=== PATIENT | male | born 1965 ===

== ENCOUNTER 2018-04-10 07:05 | Inpatient (IN) | payer OTHER ==
--- NOTE | 2018-04-10 07:14 | EDM.PDOCBH ---
ED HPI GENERAL MEDICAL PROBLEM - General Chief Complaint: Behavioral/Psych Stated Complaint: [facility] Time Seen by Provider: 04/10/18 07:09 Source of Information: Reports: EMS History Limitations: Reports: Altered Mental Status - History of Present Illness INITIAL COMMENTS - FREE TEXT/NARRATIVE: 52-year-old [place] fellow who looks much older than his stated age presents to the ED per ambulance from [place]. Apparently he is visiting here from [place]. is agitated and combative and required Ativan 1 mg IV by paramedics to keep him on the cot. Appears to be more severely confused and disoriented. Some suggestion he may have hep C and ascites and hepatorenal failure in the past. At present the patient is disoriented and somewhat combative and requires one-on-one care. He does not answer any questions. There is evidence of blood on his nose and perinasal tissues compatible with a nosebleed from the left naris. Is no evidence of blood in the oropharynx although there is a almost healing bite wound to the right lateral tongue suggesting possible seizure in the past. The family has arrived to get to provide further history. Onset: Gradual Onset Date: 04/08/18 (Gradual worsening and deterioration in mental function over the last 2-3 days.) Duration: Day(s):, Getting Worse Location: Reports: Generalized Quality: Reports: Other Severity: Severe (Generalized confusion and disorientation unable to speak) Improves with: Reports: None, Other (The abdomen has calmed him down a little bit so that he can stay on the gurney for the most part although he still tries to sit up quite often) Worsens with: Reports: None Context: Reports: Other. Denies: Activity, Exercise, Sick Contact, Trauma Associated Symptoms: Reports: Confusion, Nausea/Vomiting (Rarely he did have some he met emesis reported by paramedics.). Denies: Chest Pain, Cough, cough w sputum Treatments [employer]: Reports: Other (see below) (Paramedics found his blood sugar to be only 63 and gave him three quarters of a amp of D50 percent. Blood sugar upon arrival was 162. He also received Ativan 1 mg IV.) - Related Data Allergies Allergy/AdvReac Type Severity Reaction Status Date / Time No Known Allergies Allergy Verified 04/10/18 08:08 Home Meds: Home Meds Aspirin 81 mg PO DAILY 04/10/18 [History] Furosemide [Lasix] 20 mg PO DAILY 04/10/18 [History] Insulin Glarg,Human.Rec.Analog [Lantus] 45 units SUBCUT DAILY 04/10/18 [History] Lisinopril 10 mg PO DAILY 04/10/18 [History] Pantoprazole Sodium [Protonix] 40 mg PO DAILY 04/10/18 [History] Spironolactone [Aldactone] 100 mg PO DAILY 04/10/18 [History] Social & Family History - Living Situation & Occupation Occupation: Unemployed Social History Comment: Apparently just visiting relatives in [place] from [place]. ED ROS GENERAL - Review of Systems Review Of Systems: Unable To Obtain (Patient is nonverbal and I can't obtain any useful history.) ED EXAM, BEHAVIORAL HEALTH - Physical Exam Exam: See Below Exam Limited By: Altered Mental Status General Appearance: Other (Agitated and restless. Obviously quite confused and disoriented to person place and time) Eye Exam: Bilateral Eye: Normal Inspection (Slight scleral icterus.) Nose: Other (Some dried blood along his face along the nose and the paranasal folds. Appears to have been bleeding from the left naris. There is some history that he also had a he met emesis.) Throat/Mouth: Other (? Of a healing bite wound to the right lateral tongue. It appears to be 3-4 days old possible seizure recently.) Neck: Normal Inspection, Supple, Non-Tender, Full Range of Motion. No: Lymphadenopathy (L), Lymphadenopathy (R) Respiratory/Chest: No Respiratory Distress, Lungs Clear, Normal Breath Sounds, Chest Non-Tender Cardiovascular: Normal Peripheral Pulses, Regular Rate, Rhythm, No Edema, No Gallop, No Murmur GI/Abdominal: Distended (Bowel sounds are quite quiescent. Standard and firm to palpation clinically suspect ascites.), Abnormal Bowel Sounds, Hernia (Has an umbilical hernia that is easily reducible. The area appears be quite tender to touch.), Other (Clinically does have ascites with a fluid wave. 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 No: Normal Cognition, Oriented x 3 Psychiatric: Oriented, Agitated, Other (Confused.) Skin Exam: Warm, Dry, Intact, Normal color, No rash, Other (Does not feel febrile) EKG INTERPRETATION EKG Date: 04/10/18 Time: 07:35 Rhythm: Other (Sinus tachycardia at 1 10/m) Rate (Beats/Min): 110 [place]: Normal P-Wave: Present QRS: Other (He has a Q-wave in V1 and near Q-wave in V2 suggesting possible anteroseptal myocardial infarction.) ST-T: Other (Decreased voltage in the limb leads.) QT: Normal EKG Interpretation Comments: Abnormal ECG COURSE, BEHAVIORAL HEALTH COMP - Course Vital Signs: Last Vital Signs Temp 36.9 C 04/10/18 08:47 Pulse 110 H 04/10/18 08:47 Resp 30 H 04/10/18 08:47 BP 181/55 H 04/10/18 08:47 Pulse Ox 94 L 04/10/18 08:47 Orders, Labs, Meds: Active Orders 24 hr Category Date Time Status EKG Documentation Completion [RC] STAT Care 04/10/18 07:11 Active Insert Stewart Catheter [Insert Urinary Catheter] [OM.PC] Care 04/10/18 08:30 Ordered Stat Urinary Catheter Assessment [RC] ASDIRECTED Care 04/10/18 08:30 Active CKMB [CHEM] Stat Lab 04/10/18 09:59 Ordered CULTURE BLOOD [BC] Stat Lab 04/10/18 07:55 Received CULTURE BLOOD [BC] Stat Lab 04/10/18 07:55 Received Dextrose 5%-0.9% NaCl [Dextrose 5%-Normal Saline] 1,000 Med 04/10/18 10:00 Active ml IV ASDIRECTED Blood Culture x2 Reflex Set [OM.PC] Stat Oth 04/10/18 07:12 Ordered Medication Orders Dextrose/Sodium Chloride (Dextrose 5%-Normal Saline) 1,000 mls @ 75 mls/hr IV ASDIRECTED CAMRYN Laboratory Tests 04/10/18 04/10/18 04/10/18 Range/Units 07:45 07:45 07:55 WBC 26.84 H (4.23-9.07) K/mm3 RBC 3.05 L (4.63-6.08) M/mm3 Hgb 9.5 L (13.7-17.5) gm/L Hct 29.2 L (40.1-51.0) % MCV 95.7 H (79.0-92.2) fl MCH 31.1 (25.7-32.2) pg MCHC 32.5 (32.2-35.5) g/dl RDW Std Deviation 49.9 H (35.1-43.9) fL Plt Count 390 H (163-337) K/mm3 MPV 10.0 (9.4-12.3) fl Neutrophils % (Manual) 59 (40-60) % Band Neutrophils % 37 H (0-10) % Lymphocytes % (Manual) 3 L (20-40) % Atypical Lymphs % 0 % Monocytes % (Manual) 0 L (2-10) % Eosinophils % (Manual) 0 L (0.8-7.0) % Basophils % (Manual) 0 L (0.2-1.2) Metamyelocytes % 1 Platelet Estimate Adequate Hypochromasia Moderate Anisocytosis 2+ moderate RBC Morph Comment Not Reportable PT 13.8 H (9.5-12.1) SECONDS INR 1.27 APTT 29 (24-31) SECONDS Sodium 147 H (136-145) mEq/L Potassium 4.0 (3.5-5.1) mEq/L Chloride 106 (98-107) mEq/L Carbon Dioxide 34 H (21-32) mEq/L Anion Gap 11.0 (5-15) BUN 46 H (7-18) mg/dL Creatinine 1.8 H (0.7-1.3) mg/dL Est Cr Clr Drug Dosing TNP Estimated GFR (MDRD) 40 (>60) mL/min BUN/Creatinine Ratio 25.6 H (14-18) Glucose 89 (74-106) mg/dL Lactic Acid (0.4-2.0) mmol/L Calcium 11.7 H (8.5-10.1) mg/dL Magnesium 1.6 L (1.8-2.4) mg/dl Total Bilirubin 0.5 (0.2-1.0) mg/dL AST 120 H (15-37) U/L ALT 42 (16-63) U/L Alkaline Phosphatase 91 (46-116) U/L Ammonia (11-32) umol/L Troponin I 0.158 H* (0.00-0.056) ng/mL C-Reactive Protein 1.0 (<1.0) mg/dL NT-Pro-B Natriuret Pep (0-125) pg/mL Total Protein 5.7 L (6.4-8.2) g/dl Albumin 1.6 L (3.4-5.0) g/dl Globulin 4.1 gm/dL Albumin/Globulin Ratio 0.4 L (1-2) Urine Color (Yellow) Urine Appearance (Clear) Urine pH (5.0-8.0) Ur Specific [place] (1.005-1.030) Urine Protein (Negative) Urine Glucose (UA) (Negative) Urine Ketones (Negative) Urine Occult Blood (Negative) Urine Nitrite (Negative) Urine Bilirubin (Negative) Urine Urobilinogen (0.2-1.0) Ur Leukocyte Esterase (Negative) Urine RBC (0-5) /hpf Urine WBC (0-5) /hpf Ur Epithelial Cells (0-5) /hpf Urine Bacteria (FEW) /hpf Hyaline Casts (0-5) /lpf Urine Mucus (FEW) /hpf Urine Opiates Screen (VNDVPD=730) Ur Buprenorphine Scrn (CUTOFF=10) Ur Oxycodone Screen (EYR4RF=274) Urine Methadone Screen (NFE9ZL=553) Ur Propoxyphene Screen (WROIUC=099) Ur Barbiturates Screen (NOHHOO=216) Ur Tricyclics Screen (XFIOPO=352) Ur Phencyclidine Scrn (CUTOFF=25) Ur Amphetamine Screen (MSYOCM=474) U Methamphetamines Scrn (DQUZFJ=318) U Benzodiazepines Scrn (KYEJWV=900) U Cocaine Metab Screen (PNYZAW=992) U Marijuana (THC) Screen (CUTOFF=50) Ethyl Alcohol 0.00 (0.00) gm% Hepatitis C Antibody (NEGATIVE) 04/10/18 04/10/18 04/10/18 Range/Units 07:55 07:55 07:55 WBC (4.23-9.07) K/mm3 RBC (4.63-6.08) M/mm3 Hgb (13.7-17.5) gm/L Hct (40.1-51.0) % MCV (79.0-92.2) fl MCH (25.7-32.2) pg MCHC (32.2-35.5) g/dl RDW Std Deviation (35.1-43.9) fL Plt Count (163-337) K/mm3 MPV (9.4-12.3) fl Neutrophils % (Manual) (40-60) % Band Neutrophils % (0-10) % Lymphocytes % (Manual) (20-40) % Atypical Lymphs % % Monocytes % (Manual) (2-10) % Eosinophils % (Manual) (0.8-7.0) % Basophils % (Manual) (0.2-1.2) Metamyelocytes % Platelet Estimate Hypochromasia Anisocytosis RBC Morph Comment PT (9.5-12.1) SECONDS INR APTT (24-31) SECONDS Sodium (136-145) mEq/L Potassium (3.5-5.1) mEq/L Chloride (98-107) mEq/L Carbon Dioxide (21-32) mEq/L Anion Gap (5-15) BUN (7-18) mg/dL Creatinine (0.7-1.3) mg/dL Est Cr Clr Drug Dosing Estimated GFR (MDRD) (>60) mL/min BUN/Creatinine Ratio (14-18) Glucose (74-106) mg/dL Lactic Acid 4.1 H (0.4-2.0) mmol/L Calcium (8.5-10.1) mg/dL Magnesium (1.8-2.4) mg/dl Total Bilirubin (0.2-1.0) mg/dL AST (15-37) U/L ALT (16-63) U/L Alkaline Phosphatase (46-116) U/L Ammonia 15 (11-32) umol/L Troponin I (0.00-0.056) ng/mL C-Reactive Protein (<1.0) mg/dL NT-Pro-B Natriuret Pep 6660 H (0-125) pg/mL Total Protein (6.4-8.2) g/dl Albumin (3.4-5.0) g/dl Globulin gm/dL Albumin/Globulin Ratio (1-2) Urine Color (Yellow) Urine Appearance (Clear) Urine pH (5.0-8.0) Ur Specific [place] (1.005-1.030) Urine Protein (Negative) Urine Glucose (UA) (Negative) Urine Ketones (Negative) Urine Occult Blood (Negative) Urine Nitrite (Negative) Urine Bilirubin (Negative) Urine Urobilinogen (0.2-1.0) Ur Leukocyte Esterase (Negative) Urine RBC (0-5) /hpf Urine WBC (0-5) /hpf Ur Epithelial Cells (0-5) /hpf Urine Bacteria (FEW) /hpf Hyaline Casts (0-5) /lpf Urine Mucus (FEW) /hpf Urine Opiates Screen (VGDJPQ=138) Ur Buprenorphine Scrn (CUTOFF=10) Ur Oxycodone Screen (RUG0HJ=236) Urine Methadone Screen (CFN9YV=651) Ur Propoxyphene Screen (WDIFFE=550) Ur Barbiturates Screen (DWHWCG=900) Ur Tricyclics Screen (MFBYZJ=335) Ur Phencyclidine Scrn (CUTOFF=25) Ur Amphetamine Screen (RZVISN=109) U Methamphetamines Scrn (AJNGHX=518) U Benzodiazepines Scrn (SPULEC=116) U Cocaine Metab Screen (IGPJKB=204) U Marijuana (THC) Screen (CUTOFF=50) Ethyl Alcohol (0.00) gm% Hepatitis C Antibody Positive H (NEGATIVE) 04/10/18 04/10/18 Range/Units 08:40 08:40 WBC (4.23-9.07) K/mm3 RBC (4.63-6.08) M/mm3 Hgb (13.7-17.5) gm/L Hct (40.1-51.0) % MCV (79.0-92.2) fl MCH (25.7-32.2) pg MCHC (32.2-35.5) g/dl RDW Std Deviation (35.1-43.9) fL Plt Count (163-337) K/mm3 MPV (9.4-12.3) fl Neutrophils % (Manual) (40-60) % Band Neutrophils % (0-10) % Lymphocytes % (Manual) (20-40) % Atypical Lymphs % % Monocytes % (Manual) (2-10) % Eosinophils % (Manual) (0.8-7.0) % Basophils % (Manual) (0.2-1.2) Metamyelocytes % Platelet Estimate Hypochromasia Anisocytosis RBC Morph Comment PT (9.5-12.1) SECONDS INR APTT (24-31) SECONDS Sodium (136-145) mEq/L Potassium (3.5-5.1) mEq/L Chloride (98-107) mEq/L Carbon Dioxide (21-32) mEq/L Anion Gap (5-15) BUN (7-18) mg/dL Creatinine (0.7-1.3) mg/dL Est Cr Clr Drug Dosing Estimated GFR (MDRD) (>60) mL/min BUN/Creatinine Ratio (14-18) Glucose (74-106) mg/dL Lactic Acid (0.4-2.0) mmol/L Calcium (8.5-10.1) mg/dL Magnesium (1.8-2.4) mg/dl Total Bilirubin (0.2-1.0) mg/dL AST (15-37) U/L ALT (16-63) U/L Alkaline Phosphatase (46-116) U/L Ammonia (11-32) umol/L Troponin I (0.00-0.056) ng/mL C-Reactive Protein (<1.0) mg/dL NT-Pro-B Natriuret Pep (0-125) pg/mL Total Protein (6.4-8.2) g/dl Albumin (3.4-5.0) g/dl Globulin gm/dL Albumin/Globulin Ratio (1-2) Urine Color Dark yellow (Yellow) Urine Appearance Clear (Clear) Urine pH 7.0 (5.0-8.0) Ur Specific [place] 1.025 (1.005-1.030) Urine Protein 3+ H (Negative) Urine Glucose (UA) Negative (Negative) Urine Ketones Negative (Negative) Urine Occult Blood 1+ H (Negative) Urine Nitrite Negative (Negative) Urine Bilirubin 1+ H (Negative) Urine Urobilinogen 0.2 (0.2-1.0) Ur Leukocyte Esterase Negative (Negative) Urine RBC 0-5 (0-5) /hpf Urine WBC 5-10 H (0-5) /hpf Ur Epithelial Cells Not seen (0-5) /hpf Urine Bacteria Few (FEW) /hpf Hyaline Casts 10-20 H (0-5) /lpf Urine Mucus Few (FEW) /hpf Urine Opiates Screen Negative (JHGCKQ=764) Ur Buprenorphine Scrn Negative (CUTOFF=10) Ur Oxycodone Screen Negative (GKW4JP=106) Urine Methadone Screen Negative (OPA6XG=248) Ur Propoxyphene Screen Negative (IDYHNI=355) Ur Barbiturates Screen Negative (WWHKGE=777) Ur Tricyclics Screen Negative (KNYAFJ=396) Ur Phencyclidine Scrn Negative (CUTOFF=25) Ur Amphetamine Screen Negative (EYFWPB=211) U Methamphetamines Scrn Negative (VOLKIT=870) U Benzodiazepines Scrn Negative (VABYSD=996) U Cocaine Metab Screen Negative (OVVILO=571) U Marijuana (THC) Screen Presumptive positive H (CUTOFF=50) Ethyl Alcohol (0.00) gm% Hepatitis C Antibody (NEGATIVE) Medications Generic Name Dose Route Start Last Admin Trade Name Freq PRN Reason Stop Dose Admin Dextrose/Sodium Chloride 1,000 mls @ 75 mls/hr 04/10/18 10:00 Dextrose 5%-Normal Saline IV ASDIRECTED CAMRYN Discontinued Medications Generic Name Dose Route Start Last Admin Trade Name Freq PRN Reason Stop Dose Admin Furosemide 60 mg 04/10/18 09:56 Lasix IVPUSH 04/10/18 09:57 NOW ONE Dextrose/Sodium Chloride 1,000 mls @ 250 mls/hr 04/10/18 07:15 04/10/18 07:59 Dextrose 5%-Normal Saline IV 250 mls/hr ASDIRECTED CAMRYN Administration Piperacillin Sod/Tazobactam 100 mls @ 200 mls/hr 04/10/18 08:30 04/10/18 08: 54 Sod 4.5 gm/ Sodium Chloride IV Not Given Q6H CAMRYN Piperacillin Sod/Tazobactam 100 mls @ 200 mls/hr 04/10/18 09:00 04/10/18 09: 00 Sod 4.5 gm/ Sodium Chloride IV 04/10/18 09:29 200 mls/hr ONETIME ONE Administration Lorazepam 1 mg 04/10/18 07:28 04/10/18 07:53 Ativan IVPUSH 04/10/18 07:29 1 mg ONETIME ONE Administration Metoclopramide HCl 10 mg 04/10/18 07:38 04/10/18 07:57 Reglan IVPUSH 04/10/18 07:39 10 mg ONETIME ONE Administration Re-Assessment/Re-Exam: 52-year-old male of [place] ancestry apparently resides in [facility] and is here visiting relatives in [place]. He was picked up by the months this morning because of confusion and disorientation which apparently has been gradually getting worse the last 3 days. There is some suggestion that he clinically has cirrhosis of the liver probably from hepatitis C and alcohol. Cannot be confirmed. Lately he does have ascites. There is some mention somewhere along the line that he has had previous problems with elevated ammonia levels. No family has arrived to help explain his medical condition. He is very confused and disoriented to person place and time relatively agitated and confused. Seems to be somewhat better after 1 mg of Ativan was given by the paramedics to help keep him on the gurney. Sugar was found to be 63 paramedics initial assessment and the patient has received 3 quarters of an ampule of D50 percent. Current blood sugar was 162. Plan CT head CT abdomen without contrast. One view chest x-ray. Routine labs IV will be D 5 normal saline at 250 mils per hour. Serum ammonia and lactic acid will be checked as well as other routine labs. Re-Assessment/Re-Exam Date: 04/10/18 ( 0823 hrs. Chest x-ray reveals a diffuse infiltrate in the right lower lobe of the lung compatible with collection of fluid versus pneumonia. ET of the brain is within normal limits showing no evidence of intracranial injury bleeding or mass effect. There is no evidence of recent head trauma with no soft tissue swelling or skull fracture. CT the abdomen reveals diffuse ascites with a shrunken small liver compatible with cirrhosis of the liver. The pancreas is also mildly atrophic. Aorta shows evidence of diffuse atherosclerosis. Bladder gallbladder is extremely poorly visualized. The spleen is somewhat. Significant portal hypertension evident. Stomach appears to be distended with fluid. Abnormal CT of the abdomen) Re-Assessment/Re-Exam Time: 09:59 (Since his labs reveal his BNP is greater than 6660. The IV will be decreased from 250 mils an hour to 75 mils an hour. Blood sugar was 153 at 0950 hrs. Patient will be given Lasix 60 mg IV. Patient presents in a moribund status with ascites severe congestive failure likely the infiltrate in his right lung represents fluid versus pneumonia. However his elevated white count suggests possible underlying infective process and his white count is significantly elevated with a left shift. Will discuss case with the on-call hospitalist with a view to decision as to whether he should stay here or be transferred to [place] for definitive management.) Medical Clearance: 04/10/18 10:23 I was able to speak with Dr. Sargent -- stream control officer hospitalist and he will attend the patient in the ED and will make a decision as to disposition 04/10/18 10:31 Dr. Sargent has attended the patient in the ED and decision made to admit the patient here in the intensive care unit. Departure - Departure Time of Disposition: 10:33 Disposition: Admitted As Inpatient 67 Condition: Serious Clinical Impression: Pneumonia Qualifiers: Pneumonia type: due to unspecified organism Laterality: right Lung location: lower lobe of lung Qualified Code(s): J18.1 - Lobar pneumonia, unspecified organism Cirrhosis of liver with ascites Qualifiers: Hepatic cirrhosis type: unspecified hepatic cirrhosis Qualified Code(s): K74.60 - Unspecified cirrhosis of liver; R18.8 - Other ascites Leukocytosis Qualifiers: Leukocytosis type: bandemia Qualified Code(s): D72.825 - Bandemia Congestive heart failure Qualifiers: Heart failure type: unspecified Heart failure chronicity: acute on chronic Qualified Code(s): I50.9 - Heart failure, unspecified - Discharge Information Referrals: PCP,Unknown [Primary Care Provider] - Forms: ED Department Discharge - My Orders Last 24 Hours: My Active Orders 04/10/18 07:11 EKG Documentation Completion [RC] STAT 04/10/18 07:12 Blood Culture x2 Reflex Set [OM.PC] Stat 04/10/18 07:55 CULTURE BLOOD [BC] Stat CULTURE BLOOD [BC] Stat 04/10/18 08:30 Insert Stewart Catheter [Insert Urinary Catheter] [OM.PC] Stat Urinary Catheter Assessment [RC] ASDIRECTED 04/10/18 09:59 CKMB [CHEM] Stat 04/10/18 10:00 Dextrose 5%-0.9% NaCl [Dextrose 5%-Normal Saline] 1,000 ml IV ASDIRECTED - Assessment/Plan Last 24 Hours: My Active Orders 04/10/18 07:11 EKG Documentation Completion [RC] STAT 04/10/18 07:12 Blood Culture x2 Reflex Set [OM.PC] Stat 04/10/18 07:55 CULTURE BLOOD [BC] Stat CULTURE BLOOD [BC] Stat 04/10/18 08:30 Insert Stewart Catheter [Insert Urinary Catheter] [OM.PC] Stat Urinary Catheter Assessment [RC] ASDIRECTED 04/10/18 09:59 CKMB [CHEM] Stat 04/10/18 10:00 Dextrose 5%-0.9% NaCl [Dextrose 5%-Normal Saline] 1,000 ml IV ASDIRECTED
[2018-04-10] MEDS ORDERED: Dextrose 5%-0.9% NaCl 1,000 ML IV SCH ×2 (07:15→10:00)
[2018-04-10] MEDS ORDERED: LORazepam 2 MG/ML SDV IVPUSH ONE (07:28)
[2018-04-10] MEDS ORDERED: Metoclopramide 10 MG/2 ML SDV IVPUSH ONE (07:38)
[2018-04-10] MEDS ORDERED: Piperacillin/Tazobactam 4.5 GM in Sodium Chloride 0.9% 100 ML IV SCH (08:30)
--- NOTE | 2018-04-10 08:43 | CT ---
CT abdomen and pelvis Technique: Multiple axial sections were obtained from above the dome of the diaphragm inferiorly through the pubic symphysis. Intravenous and oral contrast not utilized. Comparison: No prior abdominal imaging. Findings: Large amount of ascites is identified. Liver is small with nodular surface contour compatible with cirrhosis. Spleen appears within normal limits. Adrenal glands show no nodule. Pancreas is within normal limits. Calcifications are seen within the renal pyramids but no calculi are seen within the collecting systems. Small focal calcification is seen within the upper central kidney most likely vascular in etiology. No ureteral dilatation or ureteral stone is seen. Diffuse atherosclerotic change noted within the aorta and iliac vessels. No aneurysm is seen. Umbilical hernia noted containing ascitic fluid. No pelvic mass or adenopathy is seen. Left inguinal hernia is noted also containing ascitic fluid. Diverticuli seen within the sigmoid colon. Subtle inflammatory change could easily be hidden by the ascites. Bone window settings were reviewed which appear within normal limits for the patient's age. Impression: 1. Large amount of ascites. Cirrhotic change within the liver. 2. Umbilical hernia containing ascitic fluid. Left inguinal hernia containing ascitic fluid. 3. No ureteral dilatation is seen. Renal pyramids show evidence of calcifications likely due to medullary sponge kidney. 4. Incidental diverticuli within the sigmoid colon and other incidental findings. Diagnostic code #3
--- NOTE | 2018-04-10 08:43 | CT ---
Head CT Technique: Multiple axial sections through the brain were obtained. Intravenous contrast was not utilized. Comparison: No prior intracranial imaging. Findings: Ventricles along with basal cisterns and sulci over the convexities are mildly prominent. Mild diminished density is seen within the periventricular and subcortical white matter as well as diffuse decreased density within the aurora. Mild diminished density is noted within portions of the cerebellar white matter. No evidence of intracranial hemorrhage. No midline shift or mass effect is seen. Bone window settings were reviewed which show no acute calvarial abnormality. Mucosal thickening is seen within the frontal, ethmoid and within the maxillary sinuses. Impression: 1. Sinus disease. Uncertain if this is acute and/or chronic. 2. Diffuse diminished density as noted above felt to represent fairly prominent small vessel ischemic demyelination change. 3. No acute intracranial abnormality is definitely seen. Diagnostic code #3
--- NOTE | 2018-04-10 08:51 | CR ---
Chest: Portable view of the chest was obtained. Comparison: No previous chest x-ray. Diffuse right mid and lower lung parenchymal density is seen. Left lung is clear. Heart size and mediastinum are normal. Old unhealed right proximal humeral fracture is seen. Scoliosis is noted. Impression: 1. Diffuse right lung parenchymal density suspicious for pneumonia. Please correlate if patient has correlating symptoms. 2. Other incidental findings as noted above. Diagnostic code #3
[2018-04-10] MEDS ORDERED: Piperacillin/Tazobactam 4.5 GM in Sodium Chloride 0.9% 100 ML IV ONE (09:00)
[2018-04-10] MEDS ORDERED: Furosemide 40 MG/4 ML VIAL IVPUSH ONE (09:56)
[2018-04-10] MEDS ORDERED: hydrALAZINE 20 MG/ML SDV IVPUSH ONE (11:02)
[2018-04-10] MEDS ORDERED: hydrALAZINE 20 MG/ML SDV ONE (11:04)
[2018-04-10] MEDS ORDERED: Metoprolol Tartrate 5 MG/5 ML SDV IVPUSH PRN (13:11)
[2018-04-10] MEDS ORDERED: hydrALAZINE 20 MG/ML SDV IVPUSH PRN (13:11)
[2018-04-10] MEDS ORDERED: Thiamine 100 MG in Sodium Chloride 0.9% 100 ML IV ONE (13:15)
[2018-04-10] MEDS ORDERED: Famotidine 20 MG/2 ML SDV IVPUSH ONE (13:17)
[2018-04-10] MEDS ORDERED: Magnesium Sulfate/Water 2 GM in Premix Bag 1 BAG IV ONE (13:30)
[2018-04-10] MEDS ORDERED: Thiamine 200 MG/2 ML MDV IVPUSH ONE (13:30)
[2018-04-10 13:40] LABS: HEMOGLOBIN A1C 6.6 % (4.50-6.20)
[2018-04-10 14:01] LABS: VITAMIN D,25-HYDROXY 18.7 ng/ml (30.0-100.0)
[2018-04-10] MEDS ORDERED: Insulin Lispro 100 UNIT/ML 10 ML VIAL SUBCUT PRN (14:11)
[2018-04-10] MEDS ORDERED: Lactulose Soln 10 GM/15 ML 30 ML UD Cup PO SCH (14:15)
[2018-04-10] MEDS ORDERED: LORazepam 2 MG/ML SDV IV PRN (14:21)
[2018-04-10] MEDS ORDERED: Acetaminophen/HYDROcodone 325-5 MG Tab PO PRN (14:21)
[2018-04-10] MEDS ORDERED: HYDROmorphone 1 MG/ML Syringe IVPUSH PRN (14:21)
[2018-04-10] MEDS ORDERED: LORazepam 2 MG/ML SDV IVPUSH PRN (14:21)
[2018-04-10] MEDS ORDERED: Acetaminophen 325 MG Tab PO PRN (14:21)
[2018-04-10] MEDS ORDERED: Ondansetron 4 MG/2 ML SDV IV PRN (14:21)
[2018-04-10] MEDS ORDERED: Albuterol/Ipratropium 3.0-0.5 MG/3 ML Neb Soln NEB PRN (14:21)
[2018-04-10] MEDS ORDERED: cloNIDine 0.3 MG/Day Transdermal Patch TRDERM ONE (14:28)
[2018-04-10] MEDS ORDERED: Levofloxacin/Dextrose 5%-Water 750 MG in Premix Bag 1 BAG IV SCH (15:00)
[2018-04-10] MEDS ORDERED: Pantoprazole 80 MG in Sodium Chloride 0.9% 100 ML IV SCH (15:00)
--- NOTE | 2018-04-10 15:41 | PCM.HP ---
H&P History of Present Illness - General Date of Service: 04/10/18 Admit Problem/Dx: Admission Diagnosis/Problem Admission Diagnosis/Problem Pneumonia Source of Information: Patient. No: Family, Old Records History Limitations: Reports: Altered Mental Status - History of Present Illness Initial Comments - Free Text/Narative: This is a 52 male with past medical hx/o Liver Cirrhosis, GERD, and DM2 who was brought in by ambulance for altered mental status in the past 2- 3 days. He appeared agitated and disorientated. He received 1 mg of Ativan en route to ED to keep him calm. His history of present illness is incomplete. Per ED notes, he lives in [facility] originally and just visiting family here in [place]. On presentation to ED, they found some blood on his nose and perinasal as well at inside his mouth and tongue. Unclear however if he had an episode of epistaxis or hematemesis. No family present at bedside to provide further hx/o him. His initial work up in ED shows a CBC remarkable for WBC of 26.84, RBC of 3.05, Hgb of 9.5, Hct of 29.2, MCV of 95.7, RDW of 49.9, Platelet of 390, Band Neutrophil of 37% and Lymphocytes of 3%. His Coagulation studies shows PT of 13.8, INR of 1.27, and aPTT of 29. His chemistry is significant for Na of 147, CO2 of 34, BUN of 46, Cr of 1.8, BS of 153, LA of 4.1, CA of 11.7, Mg of 1.6, AST of 120, CKMB of 38.4, Troponin of 0.158, ProbNP of 6660, Total Protein of 5.7, Albumin of 1.6, Vit D level of 18.7 and FT4 of 1.77. His UA is negative for UTI. His UDS is pos for THC. He is Hep C Abs positive. CXR report reads diffuse right lung parenchymal density. Head CT scan report reads no acute intra -cranial abnormality. His abdominal/pelvis CT scan report reads large ascites. Umbilical hernia containing ascitic fluids. Renal pyramids shows evidence of calcifications likely due to medullary sponge kidneys. Patient is being admitted for sepsis 2/2 pneumonia and altered mental status likely from hepatic encephalopathy and or seizure. He is presumptive full code. - Related Data Allergies/Adverse Reactions: Allergies Allergy/AdvReac Type Severity Reaction Status Date / Time No Known Allergies Allergy Verified 04/10/18 13:06 Home Medications: Home Meds Aspirin 81 mg PO DAILY 04/10/18 [History] Furosemide [Lasix] 20 mg PO DAILY 04/10/18 [History] Insulin Glarg,Human.Rec.Analog [Lantus] 45 units SUBCUT DAILY 04/10/18 [History] Lisinopril 10 mg PO DAILY 04/10/18 [History] Spironolactone [Aldactone] 100 mg PO DAILY 04/10/18 [History] Past Medical History Cardiovascular History: Reports: Hypertension Respiratory History: Reports: None Genitourinary History: Reports: None Musculoskeletal History: Reports: None Endocrine/Metabolic History: Reports: Diabetes, Type I - Infectious Disease History Infectious Disease History: Reports: Hepatitis C - Past Surgical History Cardiovascular Surgical History: Reports: None Respiratory Surgical History: Reports: None GI Surgical History: Reports: Hernia, Inguinal Male Surgical History: Reports: None Musculoskeletal Surgical History: Reports: None Social & Family History - Family History Family Medical History: Unobtainable - Tobacco Use Smoking Status *Q: Current Status Unknown - Caffeine Use Other Caffeine Use: unable to verify due to pt confused and no family present - Recreational Drug Use Recreational Drug Use: No Other Recreational Drug Type: unable to verify due to pt confused and no family present - Living Situation & Occupation Occupation: Unemployed H&P Review of Systems - Review of Systems: Review Of Systems: Unable To Obtain Review of Systems Comment:: Patient is sedated but arousable Exam - Exam Exam: See Below - Vital Signs Vital Signs: Last Vital Signs Temp 37.4 C 04/10/18 13:03 Pulse 109 H 04/10/18 13:03 Resp 22 H 04/10/18 13:03 BP 154/83 H 04/10/18 13:03 Pulse Ox 100 04/10/18 14:22 Weight: 74.979 kg - Exam General: Lethargic HEENT: Conjunctiva Clear, Pupils Equal, Pupils Reactive. No: Nares Patent, Posterior Pharynx Clear Neck: Trachea Midline. No: Full Range of Motion, JVD Lungs: Normal Respiratory Effort, Decreased Breath Sounds Cardiovascular: Tachycardia GI/Abdominal Exam: Soft, Non-Tender, No Mass, Distended, Hepatomegaly, Splenomegaly. No: Guarding, Rebound (Male) Exam: Deferred Rectal (Males) Exam: Deferred Back Exam: Other (deferred) Extremities: Non-Tender, No Pedal Edema, Normal Capillary Refill, Other (b/l leg atrophy) Peripheral Pulses: 2+: Dorsalis Pedis (L), Dorsalis Pedis (R) Skin: Warm, Dry, Intact Neuro Extensive - Mental Status: Other (altered at this point) Neuro Extensive - Motor, Sensory, Reflexes: Other (not appropriate) Psychiatric: Other (not appropraite he is sedate but arousable) - Patient Data Lab Results Last 24 hrs: Laboratory Results - last 24 hr 04/10/18 04/10/18 04/10/18 Range/Units 07:05 07:45 07:45 WBC 26.84 H (4.23-9.07) K/mm3 RBC 3.05 L (4.63-6.08) M/mm3 Hgb 9.5 L (13.7-17.5) gm/L Hct 29.2 L (40.1-51.0) % MCV 95.7 H (79.0-92.2) fl MCH 31.1 (25.7-32.2) pg MCHC 32.5 (32.2-35.5) g/dl RDW Std Deviation 49.9 H (35.1-43.9) fL Plt Count 390 H (163-337) K/mm3 MPV 10.0 (9.4-12.3) fl Neutrophils % (Manual) 59 (40-60) % Band Neutrophils % 37 H (0-10) % Lymphocytes % (Manual) 3 L (20-40) % Atypical Lymphs % 0 % Monocytes % (Manual) 0 L (2-10) % Eosinophils % (Manual) 0 L (0.8-7.0) % Basophils % (Manual) 0 L (0.2-1.2) Metamyelocytes % 1 Platelet Estimate Adequate Hypochromasia Moderate Anisocytosis 2+ moderate RBC Morph Comment Not Reportable PT 13.8 H (9.5-12.1) SECONDS INR 1.27 APTT 29 (24-31) SECONDS Sodium (136-145) mEq/L Potassium (3.5-5.1) mEq/L Chloride (98-107) mEq/L Carbon Dioxide (21-32) mEq/L Anion Gap (5-15) BUN (7-18) mg/dL Creatinine (0.7-1.3) mg/dL Est Cr Clr Drug Dosing Estimated GFR (MDRD) (>60) mL/min BUN/Creatinine Ratio (14-18) Glucose (74-106) mg/dL POC Glucose (70-105) mg/dL Hemoglobin A1c (4.50-6.20) % Lactic Acid (0.4-2.0) mmol/L Calcium (8.5-10.1) mg/dL Magnesium (1.8-2.4) mg/dl Iron (65-175) ug/dL TIBC (100-400) ug/dL % Saturation (20-55) % Transferrin (202-364) mg/dL Total Bilirubin (0.2-1.0) mg/dL AST (15-37) U/L ALT (16-63) U/L Alkaline Phosphatase (46-116) U/L Ammonia (11-32) umol/L CK-MB (CK-2) (0-3.6) ng/ml Troponin I (0.00-0.056) ng/mL C-Reactive Protein (<1.0) mg/dL NT-Pro-B Natriuret Pep (0-125) pg/mL Total Protein (6.4-8.2) g/dl Albumin (3.4-5.0) g/dl Globulin gm/dL Albumin/Globulin Ratio (1-2) Vitamin B12 (193-986) pg/ml Vitamin D 25-Hydroxy (30.0-100.0) ng/ml Folate (8.6-58.9) ng/mL Free T4 (0.76-1.46) ng/dL TSH 3rd Generation (0.358-3.74) uIU/mL Urine Color (Yellow) Urine Appearance (Clear) Urine pH (5.0-8.0) Ur Specific [facility] [place] (1.005-1.030) Urine Protein (Negative) Urine Glucose (UA) (Negative) Urine Ketones (Negative) Urine Occult Blood (Negative) Urine Nitrite (Negative) Urine Bilirubin (Negative) Urine Urobilinogen (0.2-1.0) Ur Leukocyte Esterase (Negative) Urine RBC (0-5) /hpf Urine WBC (0-5) /hpf Ur Epithelial Cells (0-5) /hpf Urine Bacteria (FEW) /hpf Hyaline Casts (0-5) /lpf Urine Mucus (FEW) /hpf Urine Opiates Screen (AYCRVQ=311) Ur Buprenorphine Scrn (CUTOFF=10) Ur Oxycodone Screen (WOH3SW=469) Urine Methadone Screen (WVC8KU=761) Ur Propoxyphene Screen (QWATVO=610) Ur Barbiturates Screen (XUHHLU=463) Ur Tricyclics Screen (LBOPWF=973) Ur Phencyclidine Scrn (CUTOFF=25) Ur Amphetamine Screen (SGHTZG=929) U Methamphetamines Scrn (JQOUSK=757) U Benzodiazepines Scrn (RBVCZZ=754) U Cocaine Metab Screen (UIQWKP=605) U Marijuana (THC) Screen (CUTOFF=50) Ethyl Alcohol (0.00) gm% H. pylori IgG Antibody (NEGATIVE) Hepatitis C Antibody (NEGATIVE) Mycoplasma pneumon IgM Negative (NEGATIVE) 04/10/18 04/10/18 04/10/18 Range/Units 07:45 07:45 07:45 WBC (4.23-9.07) K/mm3 RBC (4.63-6.08) M/mm3 Hgb (13.7-17.5) gm/L Hct (40.1-51.0) % MCV (79.0-92.2) fl MCH (25.7-32.2) pg MCHC (32.2-35.5) g/dl RDW Std Deviation (35.1-43.9) fL Plt Count (163-337) K/mm3 MPV (9.4-12.3) fl Neutrophils % (Manual) (40-60) % Band Neutrophils % (0-10) % Lymphocytes % (Manual) (20-40) % Atypical Lymphs % % Monocytes % (Manual) (2-10) % Eosinophils % (Manual) (0.8-7.0) % Basophils % (Manual) (0.2-1.2) Metamyelocytes % Platelet Estimate Hypochromasia Anisocytosis RBC Morph Comment PT (9.5-12.1) SECONDS INR APTT (24-31) SECONDS Sodium (136-145) mEq/L Potassium (3.5-5.1) mEq/L Chloride (98-107) mEq/L Carbon Dioxide (21-32) mEq/L Anion Gap (5-15) BUN (7-18) mg/dL Creatinine (0.7-1.3) mg/dL Est Cr Clr Drug Dosing Estimated GFR (MDRD) (>60) mL/min BUN/Creatinine Ratio (14-18) Glucose (74-106) mg/dL POC Glucose (70-105) mg/dL Hemoglobin A1c 6.60 H (4.50-6.20) % Lactic Acid (0.4-2.0) mmol/L Calcium (8.5-10.1) mg/dL Magnesium (1.8-2.4) mg/dl Iron (65-175) ug/dL TIBC (100-400) ug/dL % Saturation (20-55) % Transferrin (202-364) mg/dL Total Bilirubin (0.2-1.0) mg/dL AST (15-37) U/L ALT (16-63) U/L Alkaline Phosphatase (46-116) U/L Ammonia (11-32) umol/L CK-MB (CK-2) (0-3.6) ng/ml Troponin I (0.00-0.056) ng/mL C-Reactive Protein (<1.0) mg/dL NT-Pro-B Natriuret Pep (0-125) pg/mL Total Protein (6.4-8.2) g/dl Albumin (3.4-5.0) g/dl Globulin gm/dL Albumin/Globulin Ratio (1-2) Vitamin B12 2582 H (193-986) pg/ml Vitamin D 25-Hydroxy 18.7 L (30.0-100.0) ng/ml Folate 18.2 (8.6-58.9) ng/mL Free T4 1.77 H (0.76-1.46) ng/dL TSH 3rd Generation 3.695 (0.358-3.74) uIU/mL Urine Color (Yellow) Urine Appearance (Clear) Urine pH (5.0-8.0) Ur Specific [facility] (1.005-1.030) Urine Protein (Negative) Urine Glucose (UA) (Negative) Urine Ketones (Negative) Urine Occult Blood (Negative) Urine Nitrite (Negative) Urine Bilirubin (Negative) Urine Urobilinogen (0.2-1.0) Ur Leukocyte Esterase (Negative) Urine RBC (0-5) /hpf Urine WBC (0-5) /hpf Ur Epithelial Cells (0-5) /hpf Urine Bacteria (FEW) /hpf Hyaline Casts (0-5) /lpf Urine Mucus (FEW) /hpf Urine Opiates Screen (PCSQIC=278) Ur Buprenorphine Scrn (CUTOFF=10) Ur Oxycodone Screen (CCN9XG=248) Urine Methadone Screen (UFT9SK=400) Ur Propoxyphene Screen (ASVFTA=942) Ur Barbiturates Screen (KDMIRA=956) Ur Tricyclics Screen (RRJAAD=406) Ur Phencyclidine Scrn (CUTOFF=25) Ur Amphetamine Screen (JOMIWT=373) U Methamphetamines Scrn (FLNNAX=639) U Benzodiazepines Scrn (KNLKZW=015) U Cocaine Metab Screen (TBVHJR=395) U Marijuana (THC) Screen (CUTOFF=50) Ethyl Alcohol (0.00) gm% H. pylori IgG Antibody (NEGATIVE) Hepatitis C Antibody (NEGATIVE) Mycoplasma pneumon IgM (NEGATIVE) 04/10/18 04/10/18 04/10/18 Range/Units 07:45 07:48 07:55 WBC (4.23-9.07) K/mm3 RBC (4.63-6.08) M/mm3 Hgb (13.7-17.5) gm/L Hct (40.1-51.0) % MCV (79.0-92.2) fl MCH (25.7-32.2) pg MCHC (32.2-35.5) g/dl RDW Std Deviation (35.1-43.9) fL Plt Count (163-337) K/mm3 MPV (9.4-12.3) fl Neutrophils % (Manual) (40-60) % Band Neutrophils % (0-10) % Lymphocytes % (Manual) (20-40) % Atypical Lymphs % % Monocytes % (Manual) (2-10) % Eosinophils % (Manual) (0.8-7.0) % Basophils % (Manual) (0.2-1.2) Metamyelocytes % Platelet Estimate Hypochromasia Anisocytosis RBC Morph Comment PT (9.5-12.1) SECONDS INR APTT (24-31) SECONDS Sodium 147 H (136-145) mEq/L Potassium 4.0 (3.5-5.1) mEq/L Chloride 106 (98-107) mEq/L Carbon Dioxide 34 H (21-32) mEq/L Anion Gap 11.0 (5-15) BUN 46 H (7-18) mg/dL Creatinine 1.8 H (0.7-1.3) mg/dL Est Cr Clr Drug Dosing TNP Estimated GFR (MDRD) 40 (>60) mL/min BUN/Creatinine Ratio 25.6 H (14-18) Glucose 89 (74-106) mg/dL POC Glucose (70-105) mg/dL Hemoglobin A1c (4.50-6.20) % Lactic Acid (0.4-2.0) mmol/L Calcium 11.7 H (8.5-10.1) mg/dL Magnesium 1.6 L (1.8-2.4) mg/dl Iron 50 L (65-175) ug/dL TIBC 254 (100-400) ug/dL % Saturation 20 (20-55) % Transferrin 203 (202-364) mg/dL Total Bilirubin 0.5 (0.2-1.0) mg/dL AST 120 H (15-37) U/L ALT 42 (16-63) U/L Alkaline Phosphatase 91 (46-116) U/L Ammonia (11-32) umol/L CK-MB (CK-2) 38.4 H (0-3.6) ng/ml Troponin I 0.158 H* (0.00-0.056) ng/mL C-Reactive Protein 1.0 (<1.0) mg/dL NT-Pro-B Natriuret Pep (0-125) pg/mL Total Protein 5.7 L (6.4-8.2) g/dl Albumin 1.6 L (3.4-5.0) g/dl Globulin 4.1 gm/dL Albumin/Globulin Ratio 0.4 L (1-2) Vitamin B12 (193-986) pg/ml Vitamin D 25-Hydroxy (30.0-100.0) ng/ml Folate (8.6-58.9) ng/mL Free T4 (0.76-1.46) ng/dL TSH 3rd Generation (0.358-3.74) uIU/mL Urine Color (Yellow) Urine Appearance (Clear) Urine pH (5.0-8.0) Ur Specific [facility] (1.005-1.030) Urine Protein (Negative) Urine Glucose (UA) (Negative) Urine Ketones (Negative) Urine Occult Blood (Negative) Urine Nitrite (Negative) Urine Bilirubin (Negative) Urine Urobilinogen (0.2-1.0) Ur Leukocyte Esterase (Negative) Urine RBC (0-5) /hpf Urine WBC (0-5) /hpf Ur Epithelial Cells (0-5) /hpf Urine Bacteria (FEW) /hpf Hyaline Casts (0-5) /lpf Urine Mucus (FEW) /hpf Urine Opiates Screen (XLZLOY=238) Ur Buprenorphine Scrn (CUTOFF=10) Ur Oxycodone Screen (RTQ6JH=585) Urine Methadone Screen (CQP0VJ=618) Ur Propoxyphene Screen (GGUCCC=835) Ur Barbiturates Screen (OAGQOS=125) Ur Tricyclics Screen (ESWKOU=100) Ur Phencyclidine Scrn (CUTOFF=25) Ur Amphetamine Screen (QUMHZG=880) U Methamphetamines Scrn (JXAOJS=163) U Benzodiazepines Scrn (XEJEVQ=683) U Cocaine Metab Screen (ZRKNNB=847) U Marijuana (THC) Screen (CUTOFF=50) Ethyl Alcohol 0.00 (0.00) gm% H. pylori IgG Antibody (NEGATIVE) Hepatitis C Antibody (NEGATIVE) Mycoplasma pneumon IgM (NEGATIVE) 04/10/18 04/10/18 04/10/18 Range/Units 07:55 07:55 07:55 WBC (4.23-9.07) K/mm3 RBC (4.63-6.08) M/mm3 Hgb (13.7-17.5) gm/L Hct (40.1-51.0) % MCV (79.0-92.2) fl MCH (25.7-32.2) pg MCHC (32.2-35.5) g/dl RDW Std Deviation (35.1-43.9) fL Plt Count (163-337) K/mm3 MPV (9.4-12.3) fl Neutrophils % (Manual) (40-60) % Band Neutrophils % (0-10) % Lymphocytes % (Manual) (20-40) % Atypical Lymphs % % Monocytes % (Manual) (2-10) % Eosinophils % (Manual) (0.8-7.0) % Basophils % (Manual) (0.2-1.2) Metamyelocytes % Platelet Estimate Hypochromasia Anisocytosis RBC Morph Comment PT (9.5-12.1) SECONDS INR APTT (24-31) SECONDS Sodium (136-145) mEq/L Potassium (3.5-5.1) mEq/L Chloride (98-107) mEq/L Carbon Dioxide (21-32) mEq/L Anion Gap (5-15) BUN (7-18) mg/dL Creatinine (0.7-1.3) mg/dL Est Cr Clr Drug Dosing Estimated GFR (MDRD) (>60) mL/min BUN/Creatinine Ratio (14-18) Glucose (74-106) mg/dL POC Glucose (70-105) mg/dL Hemoglobin A1c (4.50-6.20) % Lactic Acid 4.1 H (0.4-2.0) mmol/L Calcium (8.5-10.1) mg/dL Magnesium (1.8-2.4) mg/dl Iron (65-175) ug/dL TIBC (100-400) ug/dL % Saturation (20-55) % Transferrin (202-364) mg/dL Total Bilirubin (0.2-1.0) mg/dL AST (15-37) U/L ALT (16-63) U/L Alkaline Phosphatase (46-116) U/L Ammonia 15 (11-32) umol/L CK-MB (CK-2) (0-3.6) ng/ml Troponin I (0.00-0.056) ng/mL C-Reactive Protein (<1.0) mg/dL NT-Pro-B Natriuret Pep 6660 H (0-125) pg/mL Total Protein (6.4-8.2) g/dl Albumin (3.4-5.0) g/dl Globulin gm/dL Albumin/Globulin Ratio (1-2) Vitamin B12 (193-986) pg/ml Vitamin D 25-Hydroxy (30.0-100.0) ng/ml Folate (8.6-58.9) ng/mL Free T4 (0.76-1.46) ng/dL TSH 3rd Generation (0.358-3.74) uIU/mL Urine Color (Yellow) Urine Appearance (Clear) Urine pH (5.0-8.0) Ur Specific [facility] (1.005-1.030) Urine Protein (Negative) Urine Glucose (UA) (Negative) Urine Ketones (Negative) Urine Occult Blood (Negative) Urine Nitrite (Negative) Urine Bilirubin (Negative) Urine Urobilinogen (0.2-1.0) Ur Leukocyte Esterase (Negative) Urine RBC (0-5) /hpf Urine WBC (0-5) /hpf Ur Epithelial Cells (0-5) /hpf Urine Bacteria (FEW) /hpf Hyaline Casts (0-5) /lpf Urine Mucus (FEW) /hpf Urine Opiates Screen (DPAQYA=926) Ur Buprenorphine Scrn (CUTOFF=10) Ur Oxycodone Screen (ZGM2JY=214) Urine Methadone Screen (DQG9JA=058) Ur Propoxyphene Screen (BAJDMR=442) Ur Barbiturates Screen (INLOHN=342) Ur Tricyclics Screen (SLYFCL=501) Ur Phencyclidine Scrn (CUTOFF=25) Ur Amphetamine Screen (OYDNFM=615) U Methamphetamines Scrn (LATFTJ=376) U Benzodiazepines Scrn (NQCTEF=096) U Cocaine Metab Screen (MUGJBV=724) U Marijuana (THC) Screen (CUTOFF=50) Ethyl Alcohol (0.00) gm% H. pylori IgG Antibody (NEGATIVE) Hepatitis C Antibody Positive H (NEGATIVE) Mycoplasma pneumon IgM (NEGATIVE) 04/10/18 04/10/18 04/10/18 Range/Units 08:40 08:40 09:51 WBC (4.23-9.07) K/mm3 RBC (4.63-6.08) M/mm3 Hgb (13.7-17.5) gm/L Hct (40.1-51.0) % MCV (79.0-92.2) fl MCH (25.7-32.2) pg MCHC (32.2-35.5) g/dl RDW Std Deviation (35.1-43.9) fL Plt Count (163-337) K/mm3 MPV (9.4-12.3) fl Neutrophils % (Manual) (40-60) % Band Neutrophils % (0-10) % Lymphocytes % (Manual) (20-40) % Atypical Lymphs % % Monocytes % (Manual) (2-10) % Eosinophils % (Manual) (0.8-7.0) % Basophils % (Manual) (0.2-1.2) Metamyelocytes % Platelet Estimate Hypochromasia Anisocytosis RBC Morph Comment PT (9.5-12.1) SECONDS INR APTT (24-31) SECONDS Sodium (136-145) mEq/L Potassium (3.5-5.1) mEq/L Chloride (98-107) mEq/L Carbon Dioxide (21-32) mEq/L Anion Gap (5-15) BUN (7-18) mg/dL Creatinine (0.7-1.3) mg/dL Est Cr Clr Drug Dosing Estimated GFR (MDRD) (>60) mL/min BUN/Creatinine Ratio (14-18) Glucose (74-106) mg/dL POC Glucose 153 H (70-105) mg/dL Hemoglobin A1c (4.50-6.20) % Lactic Acid (0.4-2.0) mmol/L Calcium (8.5-10.1) mg/dL Magnesium (1.8-2.4) mg/dl Iron (65-175) ug/dL TIBC (100-400) ug/dL % Saturation (20-55) % Transferrin (202-364) mg/dL Total Bilirubin (0.2-1.0) mg/dL AST (15-37) U/L ALT (16-63) U/L Alkaline Phosphatase (46-116) U/L Ammonia (11-32) umol/L CK-MB (CK-2) (0-3.6) ng/ml Troponin I (0.00-0.056) ng/mL C-Reactive Protein (<1.0) mg/dL NT-Pro-B Natriuret Pep (0-125) pg/mL Total Protein (6.4-8.2) g/dl Albumin (3.4-5.0) g/dl Globulin gm/dL Albumin/Globulin Ratio (1-2) Vitamin B12 (193-986) pg/ml Vitamin D 25-Hydroxy (30.0-100.0) ng/ml Folate (8.6-58.9) ng/mL Free T4 (0.76-1.46) ng/dL TSH 3rd Generation (0.358-3.74) uIU/mL Urine Color Dark yellow (Yellow) Urine Appearance Clear (Clear) Urine pH 7.0 (5.0-8.0) Ur Specific [facility] [place] 1.025 (1.005-1.030) Urine Protein 3+ H (Negative) Urine Glucose (UA) Negative (Negative) Urine Ketones Negative (Negative) Urine Occult Blood 1+ H (Negative) Urine Nitrite Negative (Negative) Urine Bilirubin 1+ H (Negative) Urine Urobilinogen 0.2 (0.2-1.0) Ur Leukocyte Esterase Negative (Negative) Urine RBC 0-5 (0-5) /hpf Urine WBC 5-10 H (0-5) /hpf Ur Epithelial Cells Not seen (0-5) /hpf Urine Bacteria Few (FEW) /hpf Hyaline Casts 10-20 H (0-5) /lpf Urine Mucus Few (FEW) /hpf Urine Opiates Screen Negative (HIUENT=564) Ur Buprenorphine Scrn Negative (CUTOFF=10) Ur Oxycodone Screen Negative (XJD2LO=563) Urine Methadone Screen Negative (SRV9BU=007) Ur Propoxyphene Screen Negative (ODUBOD=778) Ur Barbiturates Screen Negative (RKXRWL=913) Ur Tricyclics Screen Negative (AHVUML=972) Ur Phencyclidine Scrn Negative (CUTOFF=25) Ur Amphetamine Screen Negative (THTUOL=260) U Methamphetamines Scrn Negative (IWHUAS=646) U Benzodiazepines Scrn Negative (TKBCPT=165) U Cocaine Metab Screen Negative (ONGAIB=703) U Marijuana (THC) Screen Presumptive positive H (CUTOFF=50) Ethyl Alcohol (0.00) gm% H. pylori IgG Antibody (NEGATIVE) Hepatitis C Antibody (NEGATIVE) Mycoplasma pneumon IgM (NEGATIVE) 04/10/18 04/10/18 04/10/18 Range/Units 14:05 14:05 14:05 WBC (4.23-9.07) K/mm3 RBC (4.63-6.08) M/mm3 Hgb (13.7-17.5) gm/L Hct (40.1-51.0) % MCV (79.0-92.2) fl MCH (25.7-32.2) pg MCHC (32.2-35.5) g/dl RDW Std Deviation (35.1-43.9) fL Plt Count (163-337) K/mm3 MPV (9.4-12.3) fl Neutrophils % (Manual) (40-60) % Band Neutrophils % (0-10) % Lymphocytes % (Manual) (20-40) % Atypical Lymphs % % Monocytes % (Manual) (2-10) % Eosinophils % (Manual) (0.8-7.0) % Basophils % (Manual) (0.2-1.2) Metamyelocytes % Platelet Estimate Hypochromasia Anisocytosis RBC Morph Comment PT (9.5-12.1) SECONDS INR APTT (24-31) SECONDS Sodium (136-145) mEq/L Potassium (3.5-5.1) mEq/L Chloride (98-107) mEq/L Carbon Dioxide (21-32) mEq/L Anion Gap (5-15) BUN (7-18) mg/dL Creatinine (0.7-1.3) mg/dL Est Cr Clr Drug Dosing Estimated GFR (MDRD) (>60) mL/min BUN/Creatinine Ratio (14-18) Glucose (74-106) mg/dL POC Glucose (70-105) mg/dL Hemoglobin A1c (4.50-6.20) % Lactic Acid 2.3 H (0.4-2.0) mmol/L Calcium (8.5-10.1) mg/dL Magnesium (1.8-2.4) mg/dl Iron (65-175) ug/dL TIBC (100-400) ug/dL % Saturation (20-55) % Transferrin (202-364) mg/dL Total Bilirubin (0.2-1.0) mg/dL AST (15-37) U/L ALT (16-63) U/L Alkaline Phosphatase (46-116) U/L Ammonia (11-32) umol/L CK-MB (CK-2) 19.5 H (0-3.6) ng/ml Troponin I 1.760 H* (0.00-0.056) ng/mL C-Reactive Protein (<1.0) mg/dL NT-Pro-B Natriuret Pep (0-125) pg/mL Total Protein (6.4-8.2) g/dl Albumin (3.4-5.0) g/dl Globulin gm/dL Albumin/Globulin Ratio (1-2) Vitamin B12 (193-986) pg/ml Vitamin D 25-Hydroxy (30.0-100.0) ng/ml Folate (8.6-58.9) ng/mL Free T4 (0.76-1.46) ng/dL TSH 3rd Generation (0.358-3.74) uIU/mL Urine Color (Yellow) Urine Appearance (Clear) Urine pH (5.0-8.0) Ur Specific [facility] (1.005-1.030) Urine Protein (Negative) Urine Glucose (UA) (Negative) Urine Ketones (Negative) Urine Occult Blood (Negative) Urine Nitrite (Negative) Urine Bilirubin (Negative) Urine Urobilinogen (0.2-1.0) Ur Leukocyte Esterase (Negative) Urine RBC (0-5) /hpf Urine WBC (0-5) /hpf Ur Epithelial Cells (0-5) /hpf Urine Bacteria (FEW) /hpf Hyaline Casts (0-5) /lpf Urine Mucus (FEW) /hpf Urine Opiates Screen (IAIYJN=525) Ur Buprenorphine Scrn (CUTOFF=10) Ur Oxycodone Screen (RZQ6NG=691) Urine Methadone Screen (VFD0FI=747) Ur Propoxyphene Screen (NYDRHL=029) Ur Barbiturates Screen (TYGJLD=784) Ur Tricyclics Screen (YJUJOF=739) Ur Phencyclidine Scrn (CUTOFF=25) Ur Amphetamine Screen (QXKGQM=106) U Methamphetamines Scrn (AXNKCW=136) U Benzodiazepines Scrn (PYLZVT=635) U Cocaine Metab Screen (VTYFCS=128) U Marijuana (THC) Screen (CUTOFF=50) Ethyl Alcohol (0.00) gm% H. pylori IgG Antibody Negative (NEGATIVE) Hepatitis C Antibody (NEGATIVE) Mycoplasma pneumon IgM (NEGATIVE) Result Diagrams: 04/10/18 07:45 04/10/18 07:55 EKG INTERPRETATION EKG Date: 04/10/18 Time: 07:34 Rhythm: Other (Sinus Tachycardia) Rate (Beats/Min): 110 EKG Interpretation Comments: Probable Q wave in margarita-septal Problem List Initiated/Reviewed/Updated: Yes Orders Last 24hrs: Active Orders 24 hr Category Date Time Status Admission Status [Patient Status] [ADT] Routine ADT 04/10/18 10:30 Active Accu Check [Blood Glucose Check, Bedside] [RC] Q6HR Care 04/10/18 14:10 Active Antiembolic Devices [RC] PER UNIT ROUTINE Care 04/10/18 14:26 Active Bedrest Bedside Commode [RC] ASDIRECTED Care 04/10/18 14:21 Active Cardiac Monitoring [RC] CONTINUOUS Care 04/10/18 14:22 Active EKG Documentation Completion [RC] STAT Care 04/10/18 07:11 Active HOB [Head of Bed Elevation] [RC] ASDIRECTED Care 04/10/18 14:26 Active Height and Weight [RC] DAILY Care 04/10/18 14:21 Active Incentive Spirometry [RT Incentive Spirometry] [RC] Care 04/10/18 14:20 Active Q2HWA Insert Stewart Catheter [Insert Urinary Catheter] [OM.PC] Care 04/10/18 08:30 Ordered Stat Intake and Output [RC] QSHIFT Care 04/10/18 14:22 Active Oxygen Therapy [RC] PRN Care 04/10/18 14:22 Active RT Aerosol Therapy [RC] ASDIRECTED Care 04/10/18 14:23 Active Urinary Catheter Assessment [RC] ASDIRECTED Care 04/10/18 08:30 Active VTE/DVT Education [RC] PER UNIT ROUTINE Care 04/10/18 14:22 Active Vital Signs [RC] Q4H Care 04/10/18 14:22 Active Consult to Case Management/Dehydrating Press Operator [CONS] Cons 04/10/18 14:21 Active Routine Consult to Dietary [Consult to Leather Shaver] [CONS] Cons 04/10/18 13:11 Active Routine Consult to Spiritual Care [CONS] Routine Cons 04/10/18 14:21 Active Respiratory Care Assess and Treatment [CONS] Routine Cons 04/10/18 14:21 Active Nothing per Oral Now Diet [DIET] Diet 04/10/18 Lunch Active Echo Comp wo Cont [US] Routine Exams 04/10/18 14:30 Ordered BASIC METABOLIC PANEL,BMP [CHEM] AM Lab 04/11/18 05:11 Ordered BASIC METABOLIC PANEL,BMP [CHEM] AM Lab 04/12/18 05:11 Ordered BASIC METABOLIC PANEL,BMP [CHEM] AM Lab 04/13/18 05:11 Ordered BASIC METABOLIC PANEL,BMP [CHEM] AM Lab 04/14/18 05:11 Ordered BASIC METABOLIC PANEL,BMP [CHEM] AM Lab 04/15/18 05:11 Ordered C-REACTIVE PROTEIN [CHEM] AM Lab 04/11/18 05:11 Ordered C-REACTIVE PROTEIN [CHEM] AM Lab 04/12/18 05:11 Ordered C-REACTIVE PROTEIN [CHEM] AM Lab 04/13/18 05:11 Ordered C-REACTIVE PROTEIN [CHEM] AM Lab 04/14/18 05:11 Ordered C-REACTIVE PROTEIN [CHEM] AM Lab 04/15/18 05:11 Ordered CBC WITH AUTO DIFF [HEME] AM Lab 04/11/18 05:11 Ordered CBC WITH AUTO DIFF [HEME] AM Lab 04/12/18 05:11 Ordered CBC WITH AUTO DIFF [HEME] AM Lab 04/13/18 05:11 Ordered CBC WITH AUTO DIFF [HEME] AM Lab 04/14/18 05:11 Ordered CBC WITH AUTO DIFF [HEME] AM Lab 04/15/18 05:11 Ordered CKMB [CHEM] Q6H Lab 04/10/18 20:00 Ordered CKMB [CHEM] Q6H Lab 04/11/18 02:00 Ordered CKMB [CHEM] Q6H Lab 04/11/18 08:00 Ordered CULTURE BLOOD [BC] Stat Lab 04/10/18 07:55 Received CULTURE BLOOD [BC] Stat Lab 04/10/18 07:55 Received CULTURE SPUTUM + SMEAR [RM] Stat Lab 04/10/18 14:21 Ordered INFLUENZA A+B AG SCREEN [RM] Stat Lab 04/10/18 14:39 Ordered INR,PT,PROTHROMBIN TIME [COAG] AM Lab 04/11/18 05:11 Ordered INR,PT,PROTHROMBIN TIME [COAG] AM Lab 04/12/18 05:11 Ordered INR,PT,PROTHROMBIN TIME [COAG] AM Lab 04/13/18 05:11 Ordered LACTATE SEPSIS W/ REFLEX [CHEM] Q6H Lab 04/10/18 20:00 Ordered LACTATE SEPSIS W/ REFLEX [CHEM] Q6H Lab 04/11/18 02:00 Ordered LACTATE SEPSIS W/ REFLEX [CHEM] Q6H Lab 04/11/18 08:00 Ordered LIPID PANEL [CHEM] AM Lab 04/11/18 05:11 Ordered MICROALBUMIN/CREAT RATIO,URINE [URCHEM] Routine Lab 04/10/18 15:11 Ordered REFLEX LACTIC ACID YES OR NO [CHEM] Routine Lab 04/10/18 14:51 Received RESPIRATORY PANEL Stat Lab 04/10/18 14:25 Ordered STREP PNEUMONIAE ANTIGEN [MREF] Stat Lab 04/10/18 15:11 Ordered TROPONIN I [CHEM] Q6H Lab 04/10/18 20:00 Ordered TROPONIN I [CHEM] Q6H Lab 04/11/18 02:00 Ordered TROPONIN I [CHEM] Q6H Lab 04/11/18 08:00 Ordered Acetaminophen [Tylenol] Med 04/10/18 14:21 Active 650 mg PO Q4H PRN Acetaminophen/HYDROcodone [[place] 325-5 MG] Med 04/10/18 14:21 Active 1 tab PO Q4H PRN Albuterol/Ipratropium [DuoNeb 3.0-0.5 MG/3 ML] Med 04/10/18 14:21 Active 3 ml NEB Q4H PRN Cholecalciferol (Vitamin D3) [Vitamin D3] Med 04/11/18 09:00 Active 5,000 unit PO DAILY Dextrose 5%-0.9% NaCl [Dextrose 5%-Normal Saline] 1,000 Med 04/10/18 10:00 Active ml IV ASDIRECTED Folic Acid Med 04/10/18 21:00 Active 1 mg PO BEDTIME Furosemide [Lasix] Med 04/11/18 09:00 Active 20 mg IVPUSH DAILY HYDROmorphone [Dilaudid] Med 04/10/18 14:21 Active 0.25 mg IVPUSH Q2H PRN Insulin Lispro [HumaLOG] Med 04/10/18 14:11 Active See Protocol SUBCUT Q6H PRN LORazepam [Ativan] Med 04/10/18 14:21 Active 0.5 mg IV Q6H PRN LORazepam [Ativan] Med 04/10/18 14:21 Active 2 mg IVPUSH Q4H PRN Lactulose [Cephulac] Med 04/10/18 14:15 Active 20 gm PO Q6H Levofloxacin/Dextrose 5%-Water [Levaquin in D5W 750 MG/ Med 04/10/18 15:00 Active 150 ML] 750 mg Premix Bag 1 bag IV Q24H Magnesium Sulfate/Water [Magnesium Sulfate 2 GM in Med 04/10/18 13:30 Active Water 50 ML] 2 gm Premix Bag 1 bag IV ONETIME Metoprolol Tartrate [Lopressor] Med 04/10/18 13:11 Active 5 mg IVPUSH Q4H PRN Multivitamins,Therapeutic [Thera] Med 04/10/18 21:00 Active 1 each PO BEDTIME Ondansetron [Zofran] Med 04/10/18 14:21 Active 4 mg IV Q6H PRN Pantoprazole [ProTONIX IV] 80 mg Med 04/10/18 15:00 Active Sodium Chloride 0.9% [Normal Saline] 100 ml IV CONTINUOUS Pharmacy to Dose - Magnesium R [Pharmacy to Dose - Med 04/10/18 13:15 Active Magnesium Replacement] 1 dose .XX ASDIRECTED Pharmacy to Dose - Potassium R [Pharmacy to Dose - Med 04/10/18 13:15 Active Potassium Replacement] 1 dose .XX ASDIRECTED Remove Patch Med 04/17/18 15:00 Once 1 ea TRDERM ONETIME ONE Saccharomyces Boulardii [Florastor] Med 04/11/18 09:00 Active 250 mg PO DAILY Thiamine [Vitamin B-1] Med 04/11/18 21:00 Active 100 mg PO BEDTIME hydrALAZINE [Apresoline] Med 04/10/18 13:11 Active 20 mg IVPUSH Q4H PRN Blood Culture x2 Reflex Set [OM.PC] Stat Oth 04/10/18 07:12 Ordered Precautions [COMM] Routine Oth 04/10/18 14:18 Ordered SCD [Sequential Compression Device] [OM.PC] Routine Oth 04/10/18 14:26 Ordered Resuscitation Status Routine Resus Stat 04/10/18 14:21 Ordered Medication Orders Acetaminophen (Tylenol) 650 mg PO Q4H PRN PRN Reason: Pain (Mild 1-3)/fever Hydrocodone Bitart/Acetaminophen ([place] 325-5 Mg) 1 tab PO Q4H PRN PRN Reason: Pain (moderate 4-6) Albuterol/Ipratropium (Duoneb 3.0-0.5 Mg/3 Ml) 3 ml NEB Q4H PRN PRN Reason: Shortness Of Breath/wheezing Cholecalciferol (Vitamin D3) 5,000 unit PO DAILY [facility] Folic Acid (Folic Acid) 1 mg PO BEDTIME [facility] Furosemide (Lasix) 20 mg IVPUSH DAILY [facility] Stop: 04/12/18 09:01 Hydralazine HCl (Apresoline) 20 mg IVPUSH Q4H PRN PRN Reason: Hypertension Hydromorphone HCl (Dilaudid) 0.25 mg IVPUSH Q2H PRN PRN Reason: Pain (severe 7-10) Dextrose/Sodium Chloride (Dextrose 5%-Normal Saline) 1,000 mls @ 75 mls/hr IV ASDIRECTED [facility] Magnesium Sulfate 2 gm/ Premix 50 mls @ 25 mls/hr IV ONETIME ONE Stop: 04/10/18 15:29 Last Admin: 04/10/18 13:46 Dose: 25 mls/hr Levofloxacin/Dextrose 750 mg/ (Premix) 150 mls @ 100 mls/hr IV Q24H [facility] Pantoprazole Sodium 80 mg/ (Sodium Chloride) 100 mls @ 10 mls/hr IV CONTINUOUS [facility] Stop: 04/12/18 00:59 Insulin Human Lispro (Humalog) 0 unit SUBCUT Q6H PRN; Protocol PRN Reason: Hyperglycemia Lactulose (Cephulac) 20 gm PO Q6H [facility] Lorazepam (Ativan) 2 mg IVPUSH Q4H PRN PRN Reason: Seizures Lorazepam (Ativan) 0.5 mg IV Q6H PRN PRN Reason: Anxiety Magnesium Sulfate (Pharmacy To Dose - Magnesium Replacement) 1 dose .XX ASDIRECTED [facility] Metoprolol Tartrate (Lopressor) 5 mg IVPUSH Q4H PRN PRN Reason: Tachycardia Miscellaneous Information (Remove Patch) 1 ea TRDERM ONETIME ONE Stop: 04/17/18 15:01 Multivitamins (Thera) 1 each PO BEDTIME [facility] Ondansetron HCl (Zofran) 4 mg IV Q6H PRN PRN Reason: Nausea/Vomiting Potassium Chloride (Pharmacy To Dose - Potassium Replacement) 1 dose .XX ASDIRECTED [facility] Saccharomyces Boulardii (Florastor) 250 mg PO DAILY [facility] Thiamine HCl (Vitamin B-1) 100 mg PO BEDTIME [facility] Assessment/Plan Comment:: Assessment/Plan: Acute: Sepsis: - 2/2 CAP - CXR shows Diffuse right lung parenchymal density; cannot r/o aspiration - Tachycardic: heart rate in the upper tens-to teens; RR > 20, WBC 26K plus CAP and AMS - LA is 4.1--> 2.3; continue to monitor - IV Hydration and Blood culture ordered CAP - CXR shows Diffuse right lung parenchymal density; cannot r/o aspiration - Altered for 2-3 days - Received IV Zosyn in ED; will add Levaquin 750 mg daily and Vancomyin 15mg/ kg BID for pharmacy to dose - Sputum Cx, Mycoplasma, Strep pneumonia, and RVP - IS/FV as directed - Serial CXR as needed Positive Troponin Level - Demand Ischemia from Sepsis Vs ACS - CKMB is 38.4; Troponin is 0.158 (upper limit is 0.056) - Initial EKG shows Sinus Tachycardia with a HR of 110 in ED - Serial CE Q6 Elevated ProBNP Level - ProBNP of 6660 - No baseline level; unable to confirm hx/o HF - This could be 2/2 abdominal ascites - He received 60 mg IVP Lasix in ED - 2D echo for baseline - Monitor BNP level Renal Insufficiency - BUN 56; CR of 1.8 - No baseline level - Unclear if he has a baseline CKD - He currently hydrating - Monitor Is/Os Hepatic Encephalopathy - Has Liver Cirrhosis - Ammonia is 15 but LA is 4.1 and he is Septic at this point - Lactulose 20 mg po QID - Monitor Ammonia Level Hypomagnesemia - Mg 1.6 - 2/2 inadequate intake - Replete and monitor Hypoalbuminemia - Albumin 1.6 - Dietary consult for malnutrition Substance Abuse - UDS pos with THC Chronic: Liver Cirrhosis 2/2 ETOH Abuse Nicotine Dependence-smokes 1/2ppd DM2 on Insulin Unclear if he still drinks ETOH Plan: Admit to ICU Hold All Home Meds Sepsis Protocol NPO for Now Call family to get more info RT to treat and assess SW/CM for d/c planning CIWA Protocol Protonix Drip Accu-check Q6H with ISS Ativan for Abortive Seizure Folic Acid, Thiamin, Vit D Level, A1C and Iron Panel Aspiration/Fall/Seizure Prevention Code Status: Presumptive1
[2018-04-10] MEDS ORDERED: Vancomycin 1 GM, Vancomycin 500 MG in Sodium Chloride 0.9% 250 ML IV SCH (16:00)
--- NOTE | 2018-04-10 16:01 | PCM.SN ---
- Free Text/Narrative Note: Called daughter Charmaine to obtain a little bit more HPI. She confirms, he is full code. Informs her, pt is having NSTEMI and we could only medically manage him here at this facility. She states, she wants everything done for him to get better. So we offer lateral transfer and she agrees.
[2018-04-10] MEDS ORDERED: Heparin Sodium/D5W 25,000 UNITS/500 ML BAG IV SCH (16:30)
[2018-04-10] MEDS ORDERED: Heparin Sodium 5,000 Units/ML Vial IVPUSH ONE (16:45)
--- NOTE | 2018-04-10 17:11 | PCM.DCSUM1 ---
Discharge Summary - Hospital Course HPI Initial Comments: This is a 52 male with past medical hx/o Liver Cirrhosis, GERD, and DM2 who was brought in by ambulance for altered mental status in the past 2- 3 days. He appeared agitated and disorientated. He received 1 mg of Ativan en route to ED to keep him calm. His history of present illness is incomplete. Per ED notes, he lives in [facility] originally and just visiting here in [place]. On presentation to ED, they found some blood on his nose and perinasal as well at inside his mouth and tongue. Unclear however if he had an episode of epistaxis or hematemesis. No family present at bedside to provide further hx/o him. His initial work up in ED shows a CBC remarkable for WBC of 26.84, RBC of 3.05, Hgb of 9.5, Hct of 29.2, MCV of 95.7, RDW of 49.9, Platelet of 390, Band Neutrophil of 37% and Lymphocytes of 3%. His Coagulation studies shows PT of 13.8, INR of 1.27, and aPTT of 29. His chemistry is significant for Na of 147, Co2 of 34, BUN of 46, Cr of 1.8, BS of 153, LA of 4.1, CA of 11.7, Mg of 1.6, AST of 120, CKMB of 38.4, Troponin of 0.158, ProbNP of 6660, Total Protein of 5.7, Albumin of 1.6, Vit D level of 18.7 and Ft4 of 1.77. His UA is negative for UTI. His UDS is pos for THC. He is Hep C Abs positive. CXR report reads diffuse right lung parenchymal density. Head CT scan report reads no acute intra -cranial abnormality. His abdominal/pelvis CT scan report reads large ascites. umbilical hernia containing ascitic fluids. renal pyamids shows evidence of calcifications likely due to medullary sponge kidneys. Patient is being admitted for sepsis 2/2 pneumonia and altered mental status cannot r/o hepatic encephalopathy and or seizure. He is full code. Diagnosis: Stroke: No Modified Payette Scale: No Symptoms at All Modified Payette Scale Score: 0 - Discharge Data Discharge Date: 04/10/18 Discharge Disposition: DC/Tfer to Acute Hospital 02 Condition: Fair - Discharge Diagnosis/Problem(s) (1) Cirrhosis of liver with ascites SNOMED Code(s): 43721618 ICD Code: K74.60 - UNSPECIFIED CIRRHOSIS OF LIVER; R18.8 - OTHER ASCITES Status: Acute Qualifiers: Hepatic cirrhosis type: unspecified hepatic cirrhosis Qualified Code(s): K74.60 - Unspecified cirrhosis of liver; R18.8 - Other ascites (2) Congestive heart failure SNOMED Code(s): 15318918 ICD Code: I50.9 - HEART FAILURE, UNSPECIFIED Status: Acute Qualifiers: Heart failure type: unspecified Heart failure chronicity: acute on chronic Qualified Code(s): I50.9 - Heart failure, unspecified (3) Hepatic encephalopathy SNOMED Code(s): 55098152 ICD Code: K72.90 - HEPATIC FAILURE, UNSPECIFIED WITHOUT COMA Status: Acute (4) Hypoalbuminemia SNOMED Code(s): 421252164 ICD Code: E88.09 - [facility] DISORDERS OF PLASMA-PROTEIN METABOLISM, NEC Status: Acute (5) Hypomagnesemia syndrome SNOMED Code(s): 861789202 ICD Code: E83.42 - HYPOMAGNESEMIA Status: Acute (6) Leukocytosis SNOMED Code(s): 319922379, 013867480 ICD Code: D72.829 - ELEVATED WHITE BLOOD CELL COUNT, UNSPECIFIED Status: Acute Qualifiers: Leukocytosis type: bandemia Qualified Code(s): D72.825 - Bandemia (7) NSTEMI (non-ST elevated myocardial infarction) SNOMED Code(s): 88905157 ICD Code: I21.4 - NON-ST ELEVATION (NSTEMI) MYOCARDIAL INFARCTION Status: Acute (8) Pneumonia SNOMED Code(s): 494208314 ICD Code: J18.9 - PNEUMONIA, UNSPECIFIED ORGANISM Status: Acute Qualifiers: Pneumonia type: due to unspecified organism Laterality: right Lung location: lower lobe of lung Qualified Code(s): J18.1 - Lobar pneumonia, unspecified organism - Patient Summary/Data Operative Procedure(s) Performed: None Complications: None Consults: Consultations 04/10/18 13:11 Consult to Dietary [Consult to Certified Medical Transcriptionist] [CONS] Routine 04/10/18 14:21 Consult to Case Management/Client Service Coordinator [CONS] Routine Consult to Spiritual Care [CONS] Routine Respiratory Care Assess and Treatment [CONS] Routine Labs Pending at D/C: None Recommended Follow-up Testing/Procedures: None Planned Operative Procedure(s) after DC: None Hospital Course: Patient was admitted to the unit primarily for sepsis secondary to likely aspiration pneumonia from being altered but he developed NSTEMI based on his serial troponin. We called his family to guide us with treatment and we got a hold of her daughter. Charmaine, patient's daughter/DPOA, told us she wanted everything done to save his father's life and therefore we offered lateral transfer for cardiac services. We called [facility] and discussed his case with Dr. Jha, locker operator, he recommended to send him over and heparin drip. We also talked to Dr. Huizar, hospitalist, and he was kind enough to accept him under his services. It was not long after the transfer call , the patient left the facility via ground and we called his daughter for update. - Patient Instructions Other/Special Instructions: - Transfer to [place] under the services of Dr. Huizar, Hospitalist attending. Dr. Jha, Cardiology, consulting. - Discharge Plan *PRESCRIPTION DRUG MONITORING PROGRAM REVIEWED*: No *COPY OF PRESCRIPTION DRUG MONITORING REPORT IN PATIENT NÉSTOR: No Home Medications: Home Meds Aspirin 81 mg PO DAILY 04/10/18 [History] Furosemide [Lasix] 20 mg PO DAILY 04/10/18 [History] Insulin Glarg,Human.Rec.Analog [Lantus] 45 units SUBCUT DAILY 04/10/18 [History] Lisinopril 10 mg PO DAILY 04/10/18 [History] Spironolactone [Aldactone] 100 mg PO DAILY 04/10/18 [History] Referrals: PCP,Unknown [Primary Care Provider] - - Discharge Summary/Plan Comment DC Time >30 min.: Yes (1 hr) Discharge Summary/Plan Comment: Transfer to [facility] - General Info Date of Service: 04/10/18 Admission Dx/Problem (Free Text: Admission Diagnosis/Problem Admission Diagnosis/Problem Pneumonia Subjective Update: Unable to obtain ROS. He is altered - Patient Data Vitals - Most Recent: Last Vital Signs Temp 37.1 C 04/10/18 16:00 Pulse 103 H 04/10/18 16:00 Resp 20 04/10/18 16:00 BP 148/113 H 04/10/18 16:00 Pulse Ox 97 04/10/18 16:00 Weight - Most Recent: 74.979 kg I&O - Last 24 hours: Intake & Output 04/10/18 04/10/18 04/10/18 06:59 14:59 22:59 Intake Total 650 1200 Output Total 30 Balance 650 1170 Imaging Impressions - Last 24 hrs: Repeat EKG 04/10/2018 at 1522 shows sinus rhythm with a heart rate of 98 Lab Results - Last 24 hrs: Laboratory Results - last 24 hr 04/10/18 04/10/18 04/10/18 Range/Units 07:05 07:45 07:45 WBC 26.84 H (4.23-9.07) K/mm3 RBC 3.05 L (4.63-6.08) M/mm3 Hgb 9.5 L (13.7-17.5) gm/L Hct 29.2 L (40.1-51.0) % MCV 95.7 H (79.0-92.2) fl MCH 31.1 (25.7-32.2) pg MCHC 32.5 (32.2-35.5) g/dl RDW Std Deviation 49.9 H (35.1-43.9) fL Plt Count 390 H (163-337) K/mm3 MPV 10.0 (9.4-12.3) fl Neutrophils % (Manual) 59 (40-60) % Band Neutrophils % 37 H (0-10) % Lymphocytes % (Manual) 3 L (20-40) % Atypical Lymphs % 0 % Monocytes % (Manual) 0 L (2-10) % Eosinophils % (Manual) 0 L (0.8-7.0) % Basophils % (Manual) 0 L (0.2-1.2) Metamyelocytes % 1 Platelet Estimate Adequate Hypochromasia Moderate Anisocytosis 2+ moderate RBC Morph Comment Not Reportable PT 13.8 H (9.5-12.1) SECONDS INR 1.27 APTT 29 (24-31) SECONDS Sodium (136-145) mEq/L Potassium (3.5-5.1) mEq/L Chloride (98-107) mEq/L Carbon Dioxide (21-32) mEq/L Anion Gap (5-15) BUN (7-18) mg/dL Creatinine (0.7-1.3) mg/dL Est Cr Clr Drug Dosing Estimated GFR (MDRD) (>60) mL/min BUN/Creatinine Ratio (14-18) Glucose (74-106) mg/dL POC Glucose (70-105) mg/dL Hemoglobin A1c (4.50-6.20) % Lactic Acid (0.4-2.0) mmol/L Calcium (8.5-10.1) mg/dL Magnesium (1.8-2.4) mg/dl Iron (65-175) ug/dL TIBC (100-400) ug/dL % Saturation (20-55) % Transferrin (202-364) mg/dL Total Bilirubin (0.2-1.0) mg/dL AST (15-37) U/L ALT (16-63) U/L Alkaline Phosphatase (46-116) U/L Ammonia (11-32) umol/L CK-MB (CK-2) (0-3.6) ng/ml Troponin I (0.00-0.056) ng/mL C-Reactive Protein (<1.0) mg/dL NT-Pro-B Natriuret Pep (0-125) pg/mL Total Protein (6.4-8.2) g/dl Albumin (3.4-5.0) g/dl Globulin gm/dL Albumin/Globulin Ratio (1-2) Vitamin B12 (193-986) pg/ml Vitamin D 25-Hydroxy (30.0-100.0) ng/ml Folate (8.6-58.9) ng/mL Free T4 (0.76-1.46) ng/dL TSH 3rd Generation (0.358-3.74) uIU/mL Urine Color (Yellow) Urine Appearance (Clear) Urine pH (5.0-8.0) Ur Specific [place] (1.005-1.030) Urine Protein (Negative) Urine Glucose (UA) (Negative) Urine Ketones (Negative) Urine Occult Blood (Negative) Urine Nitrite (Negative) Urine Bilirubin (Negative) Urine Urobilinogen (0.2-1.0) Ur Leukocyte Esterase (Negative) Urine RBC (0-5) /hpf Urine WBC (0-5) /hpf Ur Epithelial Cells (0-5) /hpf Urine Bacteria (FEW) /hpf Hyaline Casts (0-5) /lpf Urine Mucus (FEW) /hpf Urine Opiates Screen (FNWDTS=231) Ur Buprenorphine Scrn (CUTOFF=10) Ur Oxycodone Screen (UZI3VL=678) Urine Methadone Screen (FNC4JN=039) Ur Propoxyphene Screen (EZPCEZ=330) Ur Barbiturates Screen (DSREGT=786) Ur Tricyclics Screen (WKYHUP=108) Ur Phencyclidine Scrn (CUTOFF=25) Ur Amphetamine Screen (HGMETW=922) U Methamphetamines Scrn (PCSKJO=166) U Benzodiazepines Scrn (XOTCEG=690) U Cocaine Metab Screen (ZZVEJZ=137) U Marijuana (THC) Screen (CUTOFF=50) Ethyl Alcohol (0.00) gm% H. pylori IgG Antibody (NEGATIVE) Hepatitis C Antibody (NEGATIVE) Mycoplasma pneumon IgM Negative (NEGATIVE) 04/10/18 04/10/18 04/10/18 Range/Units 07:45 07:45 07:45 WBC (4.23-9.07) K/mm3 RBC (4.63-6.08) M/mm3 Hgb (13.7-17.5) gm/L Hct (40.1-51.0) % MCV (79.0-92.2) fl MCH (25.7-32.2) pg MCHC (32.2-35.5) g/dl RDW Std Deviation (35.1-43.9) fL Plt Count (163-337) K/mm3 MPV (9.4-12.3) fl Neutrophils % (Manual) (40-60) % Band Neutrophils % (0-10) % Lymphocytes % (Manual) (20-40) % Atypical Lymphs % % Monocytes % (Manual) (2-10) % Eosinophils % (Manual) (0.8-7.0) % Basophils % (Manual) (0.2-1.2) Metamyelocytes % Platelet Estimate Hypochromasia Anisocytosis RBC Morph Comment PT (9.5-12.1) SECONDS INR APTT (24-31) SECONDS Sodium (136-145) mEq/L Potassium (3.5-5.1) mEq/L Chloride (98-107) mEq/L Carbon Dioxide (21-32) mEq/L Anion Gap (5-15) BUN (7-18) mg/dL Creatinine (0.7-1.3) mg/dL Est Cr Clr Drug Dosing Estimated GFR (MDRD) (>60) mL/min BUN/Creatinine Ratio (14-18) Glucose (74-106) mg/dL POC Glucose (70-105) mg/dL Hemoglobin A1c 6.60 H (4.50-6.20) % Lactic Acid (0.4-2.0) mmol/L Calcium (8.5-10.1) mg/dL Magnesium (1.8-2.4) mg/dl Iron (65-175) ug/dL TIBC (100-400) ug/dL % Saturation (20-55) % Transferrin (202-364) mg/dL Total Bilirubin (0.2-1.0) mg/dL AST (15-37) U/L ALT (16-63) U/L Alkaline Phosphatase (46-116) U/L Ammonia (11-32) umol/L CK-MB (CK-2) (0-3.6) ng/ml Troponin I (0.00-0.056) ng/mL C-Reactive Protein (<1.0) mg/dL NT-Pro-B Natriuret Pep (0-125) pg/mL Total Protein (6.4-8.2) g/dl Albumin (3.4-5.0) g/dl Globulin gm/dL Albumin/Globulin Ratio (1-2) Vitamin B12 2582 H (193-986) pg/ml Vitamin D 25-Hydroxy 18.7 L (30.0-100.0) ng/ml Folate 18.2 (8.6-58.9) ng/mL Free T4 1.77 H (0.76-1.46) ng/dL TSH 3rd Generation 3.695 (0.358-3.74) uIU/mL Urine Color (Yellow) Urine Appearance (Clear) Urine pH (5.0-8.0) Ur Specific [place] (1.005-1.030) Urine Protein (Negative) Urine Glucose (UA) (Negative) Urine Ketones (Negative) Urine Occult Blood (Negative) Urine Nitrite (Negative) Urine Bilirubin (Negative) Urine Urobilinogen (0.2-1.0) Ur Leukocyte Esterase (Negative) Urine RBC (0-5) /hpf Urine WBC (0-5) /hpf Ur Epithelial Cells (0-5) /hpf Urine Bacteria (FEW) /hpf Hyaline Casts (0-5) /lpf Urine Mucus (FEW) /hpf Urine Opiates Screen (XEMHYY=709) Ur Buprenorphine Scrn (CUTOFF=10) Ur Oxycodone Screen (BKM5BT=698) Urine Methadone Screen (WKY3JX=194) Ur Propoxyphene Screen (QHNZSD=062) Ur Barbiturates Screen (XLABZK=166) Ur Tricyclics Screen (WOZGZG=617) Ur Phencyclidine Scrn (CUTOFF=25) Ur Amphetamine Screen (LVIPHJ=509) U Methamphetamines Scrn (WHGLZG=715) U Benzodiazepines Scrn (RXGIPO=447) U Cocaine Metab Screen (SBZEGF=684) U Marijuana (THC) Screen (CUTOFF=50) Ethyl Alcohol (0.00) gm% H. pylori IgG Antibody (NEGATIVE) Hepatitis C Antibody (NEGATIVE) Mycoplasma pneumon IgM (NEGATIVE) 04/10/18 04/10/18 04/10/18 Range/Units 07:45 07:48 07:55 WBC (4.23-9.07) K/mm3 RBC (4.63-6.08) M/mm3 Hgb (13.7-17.5) gm/L Hct (40.1-51.0) % MCV (79.0-92.2) fl MCH (25.7-32.2) pg MCHC (32.2-35.5) g/dl RDW Std Deviation (35.1-43.9) fL Plt Count (163-337) K/mm3 MPV (9.4-12.3) fl Neutrophils % (Manual) (40-60) % Band Neutrophils % (0-10) % Lymphocytes % (Manual) (20-40) % Atypical Lymphs % % Monocytes % (Manual) (2-10) % Eosinophils % (Manual) (0.8-7.0) % Basophils % (Manual) (0.2-1.2) Metamyelocytes % Platelet Estimate Hypochromasia Anisocytosis RBC Morph Comment PT (9.5-12.1) SECONDS INR APTT (24-31) SECONDS Sodium 147 H (136-145) mEq/L Potassium 4.0 (3.5-5.1) mEq/L Chloride 106 (98-107) mEq/L Carbon Dioxide 34 H (21-32) mEq/L Anion Gap 11.0 (5-15) BUN 46 H (7-18) mg/dL Creatinine 1.8 H (0.7-1.3) mg/dL Est Cr Clr Drug Dosing TNP Estimated GFR (MDRD) 40 (>60) mL/min BUN/Creatinine Ratio 25.6 H (14-18) Glucose 89 (74-106) mg/dL POC Glucose (70-105) mg/dL Hemoglobin A1c (4.50-6.20) % Lactic Acid (0.4-2.0) mmol/L Calcium 11.7 H (8.5-10.1) mg/dL Magnesium 1.6 L (1.8-2.4) mg/dl Iron 50 L (65-175) ug/dL TIBC 254 (100-400) ug/dL % Saturation 20 (20-55) % Transferrin 203 (202-364) mg/dL Total Bilirubin 0.5 (0.2-1.0) mg/dL AST 120 H (15-37) U/L ALT 42 (16-63) U/L Alkaline Phosphatase 91 (46-116) U/L Ammonia (11-32) umol/L CK-MB (CK-2) 38.4 H (0-3.6) ng/ml Troponin I 0.158 H* (0.00-0.056) ng/mL C-Reactive Protein 1.0 (<1.0) mg/dL NT-Pro-B Natriuret Pep (0-125) pg/mL Total Protein 5.7 L (6.4-8.2) g/dl Albumin 1.6 L (3.4-5.0) g/dl Globulin 4.1 gm/dL Albumin/Globulin Ratio 0.4 L (1-2) Vitamin B12 (193-986) pg/ml Vitamin D 25-Hydroxy (30.0-100.0) ng/ml Folate (8.6-58.9) ng/mL Free T4 (0.76-1.46) ng/dL TSH 3rd Generation (0.358-3.74) uIU/mL Urine Color (Yellow) Urine Appearance (Clear) Urine pH (5.0-8.0) Ur Specific [place] (1.005-1.030) Urine Protein (Negative) Urine Glucose (UA) (Negative) Urine Ketones (Negative) Urine Occult Blood (Negative) Urine Nitrite (Negative) Urine Bilirubin (Negative) Urine Urobilinogen (0.2-1.0) Ur Leukocyte Esterase (Negative) Urine RBC (0-5) /hpf Urine WBC (0-5) /hpf Ur Epithelial Cells (0-5) /hpf Urine Bacteria (FEW) /hpf Hyaline Casts (0-5) /lpf Urine Mucus (FEW) /hpf Urine Opiates Screen (ZSFSPM=919) Ur Buprenorphine Scrn (CUTOFF=10) Ur Oxycodone Screen (SHR3IT=110) Urine Methadone Screen (PPN6LE=544) Ur Propoxyphene Screen (WAUQAW=600) Ur Barbiturates Screen (RERWXJ=300) Ur Tricyclics Screen (AMKQKC=127) Ur Phencyclidine Scrn (CUTOFF=25) Ur Amphetamine Screen (NXCVLJ=499) U Methamphetamines Scrn (LBPXZA=230) U Benzodiazepines Scrn (GQLNYU=257) U Cocaine Metab Screen (NBXBZI=881) U Marijuana (THC) Screen (CUTOFF=50) Ethyl Alcohol 0.00 (0.00) gm% H. pylori IgG Antibody (NEGATIVE) Hepatitis C Antibody (NEGATIVE) Mycoplasma pneumon IgM (NEGATIVE) 04/10/18 04/10/18 04/10/18 Range/Units 07:55 07:55 07:55 WBC (4.23-9.07) K/mm3 RBC (4.63-6.08) M/mm3 Hgb (13.7-17.5) gm/L Hct (40.1-51.0) % MCV (79.0-92.2) fl MCH (25.7-32.2) pg MCHC (32.2-35.5) g/dl RDW Std Deviation (35.1-43.9) fL Plt Count (163-337) K/mm3 MPV (9.4-12.3) fl Neutrophils % (Manual) (40-60) % Band Neutrophils % (0-10) % Lymphocytes % (Manual) (20-40) % Atypical Lymphs % % Monocytes % (Manual) (2-10) % Eosinophils % (Manual) (0.8-7.0) % Basophils % (Manual) (0.2-1.2) Metamyelocytes % Platelet Estimate Hypochromasia Anisocytosis RBC Morph Comment PT (9.5-12.1) SECONDS INR APTT (24-31) SECONDS Sodium (136-145) mEq/L Potassium (3.5-5.1) mEq/L Chloride (98-107) mEq/L Carbon Dioxide (21-32) mEq/L Anion Gap (5-15) BUN (7-18) mg/dL Creatinine (0.7-1.3) mg/dL Est Cr Clr Drug Dosing Estimated GFR (MDRD) (>60) mL/min BUN/Creatinine Ratio (14-18) Glucose (74-106) mg/dL POC Glucose (70-105) mg/dL Hemoglobin A1c (4.50-6.20) % Lactic Acid 4.1 H (0.4-2.0) mmol/L Calcium (8.5-10.1) mg/dL Magnesium (1.8-2.4) mg/dl Iron (65-175) ug/dL TIBC (100-400) ug/dL % Saturation (20-55) % Transferrin (202-364) mg/dL Total Bilirubin (0.2-1.0) mg/dL AST (15-37) U/L ALT (16-63) U/L Alkaline Phosphatase (46-116) U/L Ammonia 15 (11-32) umol/L CK-MB (CK-2) (0-3.6) ng/ml Troponin I (0.00-0.056) ng/mL C-Reactive Protein (<1.0) mg/dL NT-Pro-B Natriuret Pep 6660 H (0-125) pg/mL Total Protein (6.4-8.2) g/dl Albumin (3.4-5.0) g/dl Globulin gm/dL Albumin/Globulin Ratio (1-2) Vitamin B12 (193-986) pg/ml Vitamin D 25-Hydroxy (30.0-100.0) ng/ml Folate (8.6-58.9) ng/mL Free T4 (0.76-1.46) ng/dL TSH 3rd Generation (0.358-3.74) uIU/mL Urine Color (Yellow) Urine Appearance (Clear) Urine pH (5.0-8.0) Ur Specific [place] (1.005-1.030) Urine Protein (Negative) Urine Glucose (UA) (Negative) Urine Ketones (Negative) Urine Occult Blood (Negative) Urine Nitrite (Negative) Urine Bilirubin (Negative) Urine Urobilinogen (0.2-1.0) Ur Leukocyte Esterase (Negative) Urine RBC (0-5) /hpf Urine WBC (0-5) /hpf Ur Epithelial Cells (0-5) /hpf Urine Bacteria (FEW) /hpf Hyaline Casts (0-5) /lpf Urine Mucus (FEW) /hpf Urine Opiates Screen (FGZZFL=705) Ur Buprenorphine Scrn (CUTOFF=10) Ur Oxycodone Screen (SBG6FS=493) Urine Methadone Screen (WQZ4DX=658) Ur Propoxyphene Screen (LZWBIA=065) Ur Barbiturates Screen (JMOQSL=496) Ur Tricyclics Screen (POOYCA=326) Ur Phencyclidine Scrn (CUTOFF=25) Ur Amphetamine Screen (NNHKCC=967) U Methamphetamines Scrn (OIVASD=895) U Benzodiazepines Scrn (BLYILI=163) U Cocaine Metab Screen (JTTDGI=511) U Marijuana (THC) Screen (CUTOFF=50) Ethyl Alcohol (0.00) gm% H. pylori IgG Antibody (NEGATIVE) Hepatitis C Antibody Positive H (NEGATIVE) Mycoplasma pneumon IgM (NEGATIVE) 04/10/18 04/10/18 04/10/18 Range/Units 08:40 08:40 09:51 WBC (4.23-9.07) K/mm3 RBC (4.63-6.08) M/mm3 Hgb (13.7-17.5) gm/L Hct (40.1-51.0) % MCV (79.0-92.2) fl MCH (25.7-32.2) pg MCHC (32.2-35.5) g/dl RDW Std Deviation (35.1-43.9) fL Plt Count (163-337) K/mm3 MPV (9.4-12.3) fl Neutrophils % (Manual) (40-60) % Band Neutrophils % (0-10) % Lymphocytes % (Manual) (20-40) % Atypical Lymphs % % Monocytes % (Manual) (2-10) % Eosinophils % (Manual) (0.8-7.0) % Basophils % (Manual) (0.2-1.2) Metamyelocytes % Platelet Estimate Hypochromasia Anisocytosis RBC Morph Comment PT (9.5-12.1) SECONDS INR APTT (24-31) SECONDS Sodium (136-145) mEq/L Potassium (3.5-5.1) mEq/L Chloride (98-107) mEq/L Carbon Dioxide (21-32) mEq/L Anion Gap (5-15) BUN (7-18) mg/dL Creatinine (0.7-1.3) mg/dL Est Cr Clr Drug Dosing Estimated GFR (MDRD) (>60) mL/min BUN/Creatinine Ratio (14-18) Glucose (74-106) mg/dL POC Glucose 153 H (70-105) mg/dL Hemoglobin A1c (4.50-6.20) % Lactic Acid (0.4-2.0) mmol/L Calcium (8.5-10.1) mg/dL Magnesium (1.8-2.4) mg/dl Iron (65-175) ug/dL TIBC (100-400) ug/dL % Saturation (20-55) % Transferrin (202-364) mg/dL Total Bilirubin (0.2-1.0) mg/dL AST (15-37) U/L ALT (16-63) U/L Alkaline Phosphatase (46-116) U/L Ammonia (11-32) umol/L CK-MB (CK-2) (0-3.6) ng/ml Troponin I (0.00-0.056) ng/mL C-Reactive Protein (<1.0) mg/dL NT-Pro-B Natriuret Pep (0-125) pg/mL Total Protein (6.4-8.2) g/dl Albumin (3.4-5.0) g/dl Globulin gm/dL Albumin/Globulin Ratio (1-2) Vitamin B12 (193-986) pg/ml Vitamin D 25-Hydroxy (30.0-100.0) ng/ml Folate (8.6-58.9) ng/mL Free T4 (0.76-1.46) ng/dL TSH 3rd Generation (0.358-3.74) uIU/mL Urine Color Dark yellow (Yellow) Urine Appearance Clear (Clear) Urine pH 7.0 (5.0-8.0) Ur Specific [place] 1.025 (1.005-1.030) Urine Protein 3+ H (Negative) Urine Glucose (UA) Negative (Negative) Urine Ketones Negative (Negative) Urine Occult Blood 1+ H (Negative) Urine Nitrite Negative (Negative) Urine Bilirubin 1+ H (Negative) Urine Urobilinogen 0.2 (0.2-1.0) Ur Leukocyte Esterase Negative (Negative) Urine RBC 0-5 (0-5) /hpf Urine WBC 5-10 H (0-5) /hpf Ur Epithelial Cells Not seen (0-5) /hpf Urine Bacteria Few (FEW) /hpf Hyaline Casts 10-20 H (0-5) /lpf Urine Mucus Few (FEW) /hpf Urine Opiates Screen Negative (JEBQWP=798) Ur Buprenorphine Scrn Negative (CUTOFF=10) Ur Oxycodone Screen Negative (FOP3BH=671) Urine Methadone Screen Negative (JCM4FZ=903) Ur Propoxyphene Screen Negative (SBTBPC=705) Ur Barbiturates Screen Negative (WJXSWD=641) Ur Tricyclics Screen Negative (XUFXUD=875) Ur Phencyclidine Scrn Negative (CUTOFF=25) Ur Amphetamine Screen Negative (GKZNTG=835) U Methamphetamines Scrn Negative (ONNMLE=965) U Benzodiazepines Scrn Negative (LUEJRC=935) U Cocaine Metab Screen Negative (ICXNVB=383) U Marijuana (THC) Screen Presumptive positive H (CUTOFF=50) Ethyl Alcohol (0.00) gm% H. pylori IgG Antibody (NEGATIVE) Hepatitis C Antibody (NEGATIVE) Mycoplasma pneumon IgM (NEGATIVE) 04/10/18 04/10/18 04/10/18 Range/Units 14:05 14:05 14:05 WBC (4.23-9.07) K/mm3 RBC (4.63-6.08) M/mm3 Hgb (13.7-17.5) gm/L Hct (40.1-51.0) % MCV (79.0-92.2) fl MCH (25.7-32.2) pg MCHC (32.2-35.5) g/dl RDW Std Deviation (35.1-43.9) fL Plt Count (163-337) K/mm3 MPV (9.4-12.3) fl Neutrophils % (Manual) (40-60) % Band Neutrophils % (0-10) % Lymphocytes % (Manual) (20-40) % Atypical Lymphs % % Monocytes % (Manual) (2-10) % Eosinophils % (Manual) (0.8-7.0) % Basophils % (Manual) (0.2-1.2) Metamyelocytes % Platelet Estimate Hypochromasia Anisocytosis RBC Morph Comment PT (9.5-12.1) SECONDS INR APTT (24-31) SECONDS Sodium (136-145) mEq/L Potassium (3.5-5.1) mEq/L Chloride (98-107) mEq/L Carbon Dioxide (21-32) mEq/L Anion Gap (5-15) BUN (7-18) mg/dL Creatinine (0.7-1.3) mg/dL Est Cr Clr Drug Dosing Estimated GFR (MDRD) (>60) mL/min BUN/Creatinine Ratio (14-18) Glucose (74-106) mg/dL POC Glucose (70-105) mg/dL Hemoglobin A1c (4.50-6.20) % Lactic Acid 2.3 H (0.4-2.0) mmol/L Calcium (8.5-10.1) mg/dL Magnesium (1.8-2.4) mg/dl Iron (65-175) ug/dL TIBC (100-400) ug/dL % Saturation (20-55) % Transferrin (202-364) mg/dL Total Bilirubin (0.2-1.0) mg/dL AST (15-37) U/L ALT (16-63) U/L Alkaline Phosphatase (46-116) U/L Ammonia (11-32) umol/L CK-MB (CK-2) 19.5 H (0-3.6) ng/ml Troponin I 1.760 H* (0.00-0.056) ng/mL C-Reactive Protein (<1.0) mg/dL NT-Pro-B Natriuret Pep (0-125) pg/mL Total Protein (6.4-8.2) g/dl Albumin (3.4-5.0) g/dl Globulin gm/dL Albumin/Globulin Ratio (1-2) Vitamin B12 (193-986) pg/ml Vitamin D 25-Hydroxy (30.0-100.0) ng/ml Folate (8.6-58.9) ng/mL Free T4 (0.76-1.46) ng/dL TSH 3rd Generation (0.358-3.74) uIU/mL Urine Color (Yellow) Urine Appearance (Clear) Urine pH (5.0-8.0) Ur Specific [place] (1.005-1.030) Urine Protein (Negative) Urine Glucose (UA) (Negative) Urine Ketones (Negative) Urine Occult Blood (Negative) Urine Nitrite (Negative) Urine Bilirubin (Negative) Urine Urobilinogen (0.2-1.0) Ur Leukocyte Esterase (Negative) Urine RBC (0-5) /hpf Urine WBC (0-5) /hpf Ur Epithelial Cells (0-5) /hpf Urine Bacteria (FEW) /hpf Hyaline Casts (0-5) /lpf Urine Mucus (FEW) /hpf Urine Opiates Screen (WSOBJP=340) Ur Buprenorphine Scrn (CUTOFF=10) Ur Oxycodone Screen (RGW8JM=648) Urine Methadone Screen (MNB0IR=319) Ur Propoxyphene Screen (IXYOKF=867) Ur Barbiturates Screen (ONYVIL=960) Ur Tricyclics Screen (MLKQBN=161) Ur Phencyclidine Scrn (CUTOFF=25) Ur Amphetamine Screen (FLAULU=435) U Methamphetamines Scrn (GJJENS=324) U Benzodiazepines Scrn (GNDAHL=452) U Cocaine Metab Screen (ZTKQMC=118) U Marijuana (THC) Screen (CUTOFF=50) Ethyl Alcohol (0.00) gm% H. pylori IgG Antibody Negative (NEGATIVE) Hepatitis C Antibody (NEGATIVE) Mycoplasma pneumon IgM (NEGATIVE) MIKY Results - Last 24 hrs: Microbiology 04/10/18 16:00 Influenza Type A Antigen Screen - Final Nasal, Unspecified NEGATIVE INFLUENZA A VIRUS AG Influenza Type B Antigen Screen - Final NEGATIVE INFLUENZA B VIRUS AG Med Orders - Current: Current Medications Acetaminophen (Tylenol) 650 mg PO Q4H PRN PRN Reason: Pain (Mild 1-3)/fever Hydrocodone Bitart/Acetaminophen ([place] 325-5 Mg) 1 tab PO Q4H PRN PRN Reason: Pain (moderate 4-6) Albuterol/Ipratropium (Duoneb 3.0-0.5 Mg/3 Ml) 3 ml NEB Q4H PRN PRN Reason: Shortness Of Breath/wheezing Cholecalciferol (Vitamin D3) 5,000 unit PO DAILY CAMRYN Folic Acid (Folic Acid) 1 mg PO BEDTIME CAMRYN Furosemide (Lasix) 20 mg IVPUSH DAILY CAMRYN Stop: 04/12/18 09:01 Hydralazine HCl (Apresoline) 20 mg IVPUSH Q4H PRN PRN Reason: Hypertension Hydromorphone HCl (Dilaudid) 0.25 mg IVPUSH Q2H PRN PRN Reason: Pain (severe 7-10) Dextrose/Sodium Chloride (Dextrose 5%-Normal Saline) 1,000 mls @ 75 mls/hr IV ASDIRECTED [facility] Last Admin: 04/10/18 15:57 Dose: 75 mls/hr Levofloxacin/Dextrose 750 mg/ (Premix) 150 mls @ 100 mls/hr IV Q24H [facility] Last Admin: 04/10/18 16:31 Dose: 100 mls/hr Pantoprazole Sodium 80 mg/ (Sodium Chloride) 100 mls @ 10 mls/hr IV CONTINUOUS [facility] Stop: 04/12/18 00:59 Last Admin: 04/10/18 15:59 Dose: 10 mls/hr Vancomycin HCl 1 gm/Vancomycin HCl 500 mg/ Sodium Chloride 250 mls @ 125 mls/ hr IV Q12H [facility] Heparin Sodium/Dextrose (Heparin 25,000 Units In D5w 500 Ml) 25,000 units in 500 mls @ 22.494 mls/hr IV TITRATE [facility]; Protocol Insulin Human Lispro (Humalog) 0 unit SUBCUT Q6H PRN; Protocol PRN Reason: Hyperglycemia Lactulose (Cephulac) 20 gm PO Q6H [facility] Lorazepam (Ativan) 2 mg IVPUSH Q4H PRN PRN Reason: Seizures Lorazepam (Ativan) 0.5 mg IV Q6H PRN PRN Reason: Anxiety Magnesium Sulfate (Pharmacy To Dose - Magnesium Replacement) 1 dose .XX ASDIRECTED [facility] Metoprolol Tartrate (Lopressor) 5 mg IVPUSH Q4H PRN PRN Reason: Tachycardia Miscellaneous Information (Remove Patch) 1 ea TRDERM ONETIME ONE Stop: 04/17/18 15:01 Multivitamins (Thera) 1 each PO BEDTIME [facility] Ondansetron HCl (Zofran) 4 mg IV Q6H PRN PRN Reason: Nausea/Vomiting Potassium Chloride (Pharmacy To Dose - Potassium Replacement) 1 dose .XX ASDIRECTED [facility] Saccharomyces Boulardii (Florastor) 250 mg PO DAILY [facility] Thiamine HCl (Vitamin B-1) 100 mg PO BEDTIME [facility] Vancomycin HCl (Pharmacy To Dose - Vancomycin) 1 dose 15 mg/kg (1124.685 mg) .XX ASDIRECTED [facility] Discontinued Medications Clonidine HCl (Catapres-Tts 3) 0.3 mg TRDERM Q7D ONE Stop: 04/10/18 14:29 Last Admin: 04/10/18 16:06 Dose: 0.3 mg Famotidine (Pepcid) 20 mg IVPUSH ONETIME ONE Stop: 04/10/18 13:18 Last Admin: 04/10/18 13:45 Dose: 20 mg Famotidine (Pepcid) 20 mg IVPUSH BID [facility] Stop: 04/11/18 21:01 Famotidine (Pepcid) 20 mg PO DAILY [facility] Furosemide (Lasix) 60 mg IVPUSH NOW ONE Stop: 04/10/18 09:57 Last Admin: 04/10/18 10:38 Dose: 60 mg Heparin Sodium (Porcine) (Heparin Sodium) 5,250 units IVPUSH ONETIME ONE Stop: 04/10/18 16:46 Hydralazine HCl (Apresoline) 10 mg IVPUSH ONETIME ONE Stop: 04/10/18 11:03 Last Admin: 04/10/18 11:05 Dose: 10 mg Hydralazine HCl (Apresoline) Confirm Administered Dose 20 mg .ROUTE .STK-MED ONE Stop: 04/10/18 11:05 Last Admin: 04/10/18 11:07 Dose: Not Given Dextrose/Sodium Chloride (Dextrose 5%-Normal Saline) 1,000 mls @ 250 mls/hr IV ASDIRECTED [facility] Last Admin: 04/10/18 07:59 Dose: 250 mls/hr Piperacillin Sod/Tazobactam (Sod 4.5 gm/ Sodium Chloride) 100 mls @ 200 mls/hr IV Q6H [facility] Last Admin: 04/10/18 08:54 Dose: Not Given Piperacillin Sod/Tazobactam (Sod 4.5 gm/ Sodium Chloride) 100 mls @ 200 mls/hr IV ONETIME ONE Stop: 04/10/18 09:29 Last Admin: 04/10/18 09:00 Dose: 200 mls/hr Thiamine HCl 100 mg/ Sodium (Chloride) 101 mls @ 202 mls/hr IV ONETIME ONE Stop: 04/10/18 13:16 Magnesium Sulfate 2 gm/ Premix 50 mls @ 25 mls/hr IV ONETIME ONE Stop: 04/10/18 15:29 Last Admin: 04/10/18 13:46 Dose: 25 mls/hr Lorazepam (Ativan) 1 mg IVPUSH ONETIME ONE Stop: 04/10/18 07:29 Last Admin: 04/10/18 07:53 Dose: 1 mg Metoclopramide HCl (Reglan) 10 mg IVPUSH ONETIME ONE Stop: 04/10/18 07:39 Last Admin: 04/10/18 07:57 Dose: 10 mg Thiamine HCl (Vitamin B-1) 100 mg IVPUSH ONETIME ONE Stop: 04/10/18 13:31 Last Admin: 04/10/18 13:42 Dose: 100 mg - Exam General: Reports: Lethargic, Other (but arousable) HEENT: Reports: Pupils Equal, Pupils Reactive Neck: Reports: Trachea Midline, No JVD, No Thyromegaly Lungs: Reports: Normal Respiratory Effort, Decreased Breath Sounds Cardiovascular: Reports: Tachycardia GI/Abdominal Exam: Normal Bowel Sounds, Soft, Non-Tender, No Mass, Distended, Hepatomegaly, Splenomegaly (Male) Exam: Deferred Rectal (Males) Exam: Deferred Back Exam: Reports: Other (deferred) Extremities: No Pedal Edema, Normal Capillary Refill, Limited Range of Motion Skin: Reports: Warm, Dry, Intact Neurological: Reports: Other (not appropriate as he cannot follow commands due to confusion) Psy/Mental Status: Reports: Normal Affect, Normal Mood. Denies: Anxious, Agitated, Suicidal Ideation, Homicidal Ideation, Hallucinations, Withdrawal Symptoms Physical Findings Comments:: Physical exam is limited by his confusion and inability to follow commands
[2018-04-10] MEDS ORDERED: Multivitamins,Therapeutic Tab PO SCH (21:00)
[2018-04-10] MEDS ORDERED: Famotidine 20 MG/2 ML SDV IVPUSH SCH (21:00)
[2018-04-10] MEDS ORDERED: Folic Acid 1 MG Tab PO SCH (21:00)
[2018-04-11] MEDS ORDERED: Furosemide 20 MG/2 ML VIAL IVPUSH SCH (09:00)
[2018-04-11] MEDS ORDERED: Saccharomyces Boulardii (Probiotic) 250 MG Cap PO SCH (09:00)
[2018-04-11] MEDS ORDERED: Cholecalciferol (Vitamin D3) 5,000 UNIT Tab PO SCH (09:00)
[2018-04-11] MEDS ORDERED: Thiamine 100 MG Tab PO SCH (21:00)
[2018-04-12] MEDS ORDERED: Famotidine 20 MG Tab PO SCH (09:00)
== END 2018-04-10 18:45 | DRG 871 ==
LOC: JD.ED 07:05 → JD.ICU 10:30
PROVIDERS: ADMIT Emergency Medicine; ATTEND Internal Medicine
DX: A41.9 Sepsis, unspecified organism (principal); J18.1 Lobar pneumonia, unspecified organism; I21.4 Non-ST elevation (NSTEMI) myocardial infarction; K21.9 Gastro-esophageal reflux disease without esophagitis; E11.9 Type 2 diabetes mellitus without complications; K72.90 Hepatic failure, unspecified without coma; R56.9 Unspecified convulsions; B19.20 Unspecified viral hepatitis C without hepatic coma; R74.8 Abnormal levels of other serum enzymes; N28.9 Disorder of kidney and ureter, unspecified; E83.42 Hypomagnesemia; E88.09 Other disorders of plasma-protein metabolism, not elsewhere classified; K70.31 Alcoholic cirrhosis of liver with ascites; I50.9 Heart failure, unspecified; Z79.899 Other long term (current) drug therapy; Z79.82 Long term (current) use of aspirin; Z79.4 Long term (current) use of insulin
CPT/HCPCS: 36415; 70450; 70450-26; 71045; 71045-26; 74176; 74176-26; 80053; 80306; 81001; 82043; 82140; 82306; 82553; 82607; 82746; 82962; 83036; 83540; 83605; 83735; 83880; 84439; 84443; 84466; 84484; 85007; 85027; 85610; 85730; 86140; 86677; 86738; 86803; 87040; 87804; 87899; 93005; 96361; 96365; 96375; 99285-25; A9270-GY; C9113; G0480; J0360; J1644; J1940; J1956; J2060; J2543; J2765; J3411; J3475; J3490; J7030; J7042